=== PATIENT | male | born 2000 | race Caucasian/White ===

== ENCOUNTER 2019-09-05 21:56 | Emergency (ER) | payer SELFPAY ==
[2019-09-05 21:59] VITALS: BP 126/73; PULSE 108; RESP 18; TEMP 36.8; O2SAT 95; BMI 24.5
--- NOTE | 2019-09-05 22:58 | ED_ITS ---
HPI - Eye Problem General: Chief complaint: Eye Problems Stated complaint: possible eye infection Time Seen by Provider: 09/05/19 22:01 History of Present Illness: MD chief complaint: eye pain, eye redness and vision change Onset (ago): day(s) (1) Onset description: sudden Duration: constant Location: right eye Eye Symptoms: burning, redness and blurry vision Place: home Mechanism: direct trauma Severity: moderate If Pain, Quality: burning Associated symptoms: Denies no associated symptoms, fever(s), headache(s), nausea, neck pain, short of breath or vomiting Review of Systems Const: Denies: fever Eyes: Denies: change in vision or blurry vision ENMT: Denies: painful swallowing, swelling of lips/tongue, bleeding gums, Change in hearing, nose bleeds, post nasal drip or facial/sinus pain Card: Denies: chest pain, palpitations, irregular heart rhythm, edema, swelling of feet/ankles, shortness of breath on exertion or shortness of breath when lying down Resp: Denies: shortness of breath, productive cough, non-productive cough or wheezing GI: Denies: nausea or vomiting : Denies: difficulty urinating or blood in urine Musc: Denies: neck pain Skin/Breast: Reports: new lesion (Patient states he has had a right distal arm lesion with pain, swelling, and drainage for the last several days. He notes that a lot of pus has come out of it with pressure.); Denies: itching or redness Neuro: Denies: headache Psych: Denies: anxiety, visual hallucinations or auditory hallucinations PFSH ED PFSH: Social History Smoking and tobacco status: current every day smoker Physical Exam Const: GENERAL APPEARANCE: well developed ORIENTATION/CONSCIOUSNESS: Yes oriented to person, Yes oriented to place and Yes oriented to time HENMT: COMMON NORMALS: normocephalic, external ears normal and external nose normal HEAD & SCALP: normocephalic FACE & SINUS: normal facial exam NOSE: external nose normal and no nasal discharge EXTERNAL EAR: Yes external ears normal MOUTH: tongue normal TEETH & GINGIVA: no abnormal tooth and associated gingiva THROAT: posterior oropharynx normal; no peritonsillar mass Eye: COMMON NORMALS: PERRL VISUAL ACUITY: Yes visual acuity right eye (Decrease) VISUAL JACOBO: No peripheral vision loss EYELID: eyelids normal CONJUNCTIVA: Yes conjunctiva abnormal positive right conjunctival injection PUPIL: Yes PERRL DIRECT OPHTHALMOSCOPY: Yes other (On fluorescein exam, uptake noted at 6:00. Indicative of corneal abrasion) Neck/C-Spine: COMMON NORMALS: full ROM GENERAL: No tracheal deviation CERVICAL SPINE: Yes normal cervical lordosis and No cervical spine tenderness Chest: COMMONS NORMALS: inspection of chest normal CHEST: No tenderness Resp: COMMON NORMALS: clear to auscultation bilaterally EFFORT & INSPECTION: No tachypneic, No respiratory distress, No retractions, No uses accessory muscles and No tracheal deviation AUSCULTATION: clear to auscultation bilaterally, no rhonchi, no wheezes and lung sounds not diminished Cardio: COMMON NORMALS: regular rate and regular rhythm RATE: regular rate RHYTHM: regular rhythm HEART SOUNDS: no murmurs PERIPHERAL PULSES: radial pulses present GI: INSPECTION: No abdominal distension AUSCULTATION: No hyperactive bowel sounds and No hypoactive bowel sounds PALPATION: No guarding and No rigid PERCUSSION: no dullness to percussion and no tympanic to percussion : COMMON NORMALS: Yes no CVA tenderness BLADDER/KIDNEY EXAM: Yes no CVA tenderness Back/Pelvis: COMMON NORMALS: no CVA tenderness Neuro: SENSORIUM/ORIENTATION: Yes oriented to person, Yes oriented to place and Yes oriented to time Psych: COMMON NORMALS: mental status grossly normal Skin: LESIONS: other (Right distal arm, ulceration with drainage. There is swelling surrounding with mild redness. No streaking or lymphadenitis. No extreme pain with wrist extension.) Procedures Abscess I/D Site: upper extremity (Right arm) Side (if applicable): right Local Anesthetic: lidocaine 1% Amount of anesthesia used (mL): 4 Technique: incised with #11 blade Amount of fluid expressed (mL): 10 Irrigation: No Packing used?: plain Complications: other (None) Course Vital Signs: Vital signs: Vital Signs Temperature 98.3 F 09/05/19 21:59 Pulse Rate 102 H 09/05/19 23:12 Respiratory Rate 17 09/05/19 23:12 Blood Pressure 120/65 09/05/19 23:12 Pulse Oximetry 96 09/05/19 23:12 MDM - Eye Problem MDM Narrative: Medical decision making narrative: 2 complaints. The first is that of a corneal abrasion. The second is that the skin abscess to his right distal arm. A small amount of old blood, and some pus extruded on incision and drainage. It was packed with a small amount of packing. It be placed on Bactrim. Polymyxin eyedrops for the eye. Close outpatient follow-up via urgent care, as the patient has no primary care provider Discharge Plan Discharge Patient Disposition: Home, Self-Care Clinical Impression: Corneal abrasion Qualifiers: Encounter type: initial encounter Laterality: right Qualified Code(s): S05.01XA - Injury of conjunctiva and corneal abrasion without foreign body, right eye, initial encounter Abscess of skin Qualifiers: Site of cutaneous abscess: extremity Site of cutaneous abscess of extremity: upper extremity Laterality: right Qualified Code(s): L02.413 - Cutaneous abscess of right upper limb Condition: Stable Prescriptions: New Bactrim DS 800-160 mg tablet 2 tab PO BID 7 Days Qty: 28 RF: 0 [place] 5-325 mg tablet 1 tab PO Q6H PRN (Reason: pain) Qty: 10 RF: 0 Discharge Orders: Discharge Order (Routine); Ordered 09/05/19 Ordered By: Chau Alexander Referrals: [facility]RG[facility], [Staff Physician] - 4-7 days (For wound check) Discharge Diet: Usual diet Discharge Activity: Resume usual activity Patient Instructions: Corneal Abrasion (ED), Abscess (ED) Activity Restrictions/Additional Instructions: Wash area with clean soap and water frequently. Do not soak. Leave packing in until it falls out. When it falls out, just keep it covered. Keep it covered at all times to prevent leakage of drainage. Return for worsening pain, swelling, redness despite at least 2 doses of antibiotics. Return also for wors ening vision, worsening eye pain, drainage from the eye despite treatment. Use the eyedrops you were dispensed every 4 hours while awake for the next 7 days. Do not use contacts. Discharge Date/Time: 09/05/19 23:12 Coding Level of Care Code ED Calculator Operator for Raymond Villagomez
[2019-09-05] MEDS: fluorescein 1 mg Strip EYE-RIGHT (23:01)
[2019-09-05] MEDS: lidocaine 1% INJ 20 mL INJECTION (23:02)
[2019-09-05] MEDS: oxyCODONE-APAP 5-325 mg Tablet 2 TAB PO (23:04)
[2019-09-05] MEDS: sulfamethoxazole-trimeth DS 160-800 mg Tablet 2 TAB PO (23:04)
[2019-09-05 23:12] VITALS: BP 120/65; PULSE 102; RESP 17; O2SAT 96
[2019-09-05] MEDS: tetracaine 0.5% Op Soln 4 mL Btl 1 DROP EYE-RIGHT (23:13)
== END 2019-09-05 23:12 | disposition home or self-care (01) ==
PROVIDERS: Emergency Provider Emergency Medicine
DX: S05.01XA Injury of conjunctiva and corneal abrasion without foreign body, right eye, initial encounter (principal); L02.413 Cutaneous abscess of right upper limb; X58.XXXA Exposure to other specified factors, initial encounter; F17.210 Nicotine dependence, cigarettes, uncomplicated
CPT/HCPCS: 10060; 12345; 99281; 99283; J2001

== ENCOUNTER 2019-09-10 00:06 | Emergency (ER) | payer SELFPAY ==
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
--- NOTE | 2019-09-10 00:42 | PC.NURSE ---
Patient would not allow vitals or any labs to be drawn. Pt very anxious and uncooperative.
== END 2019-09-10 00:55 | disposition left against medical advice (07) ==
PROVIDERS: Emergency Provider Emergency Medicine
DX: R55 Syncope and collapse (principal); Z53.29 Procedure and treatment not carried out because of patient's decision for other reasons
CPT/HCPCS: 12345; 99281

== ENCOUNTER 2020-02-15 03:10 | Inpatient (IN) | payer SELFPAY ==
[2020-02-15] VITALS (76 sets, daily range): BP systolic 86–128; BP diastolic 38–76; PULSE 81–149; RESP 13–48; TEMP 36.5–39.4; O2SAT 63–98; BMI 28.0
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
--- NOTE | 2020-02-15 03:21 | ECG_ITS ---
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 Measurements Intervals [place] Rate: 123 P: 66 [place]: 129 QRS: 57 QRSD: 99 T: 53 QT: 336 QTc: 481 Interpretive Statements SINUS TACHYCARDIA ABNORMAL RHYTHM ECG No previous ECG available for comparison Electronically Signed On 02-15-2020 20:24:43 CDT by Hernandez Whitaker M.D. [id number]
[2020-02-15] MEDS: morphine 4 mg/mL SDV 1 mL IVP (03:26)
[2020-02-15] MEDS: sodium chloride 0.9% 1,000 ML 999 ML IV (03:26)
[2020-02-15] MEDS: ondansetron 2 mg/ML SDV 2 mL 4 MG IVP (03:27)
[2020-02-15 03:37] LABS: Basophils # 0.1 10^3/uL (0.0-0.1); Basophils % 0.4 %; Eosinophils % 0.1 %; Hematocrit 37.2 % (42.0-52.0); Hemoglobin 12.4 g/dL (11.7-16.6); Lymphocytes # 1.2 10^3/uL (0.8-4.8); Lymphocytes % 6.9 %; Mean Corpuscular HGB Conc 33.3 g/dL (30.0-36.0); Mean Corpuscular Hemoglobin 27.6 pg (28.0-34.0); Mean Corpuscular Volume 82.7 fL (80-94); Mean Platelet Volume 12.4 fL (7.4-10.4); Monocytes % 11.4 %; Neutrophils # 14.11 10^3/uL (1.8-7.7); Neutrophils % 79.9 %; Nucleated Red Blood Cells % 0 %; Platelet Count 130 10^3/cmm (130-400); Red Cell Distribution Width 13.2 % (12.1-15.1); White Blood Count 17.7 10^3/uL (4.0-10.0)
[2020-02-15] MEDS: iohexol 300 mg/mL 100 mL Btl IV ×2 (03:40→11:06)
[2020-02-15 03:48] LABS: INR 1.02 (0.8-1.2)
[2020-02-15 03:49] LABS: Partial Thromboplastin Time 30.1 SECONDS (23.9-36.7)
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
[2020-02-15 03:58] LABS: Alanine Aminotransferase 49 U/L (0-41); Albumin Level 2.6 g/dL (3.5-5.2); Alkaline Phosphatase 103 IU/L (40-130); Anion Gap 12.5 (5-19); Aspartate Amino Transferase 103 U/L (0-40); Blood Urea Nitrogen 13 mg/dL (6-20); C Reactive Protein 203.8 mg/L (0.0-4.9); Calcium 7.6 mg/dL (8.5-10.5); Carbon Dioxide 27 mmol/L (22-29); Chloride 92 mmol/L (98-107); Globulin 3.7 g/dL (1.3-4.6); Glomerular Filtration Rate 142.4 mL/min (90-130); Glucose 124 mg/dL (65-115); Lipase 15 U/L (13-60); Osmolality Calculated 268 mOsm/kg (285-295); Potassium 3.5 mmol/L (3.5-5.1); Sodium 128 mmol/L (136-145); Total Bilirubin 0.5 mg/dL (0.15-1.2); Total Protein 6.3 g/dL (6.6-8.7)
[2020-02-15 04:16] LABS: Lactate (Lactic Acid level) 1.1 mmol/L (0.5-2.2)
[2020-02-15 04:27] LABS: Glucose Point of Care 111 mg/dL (70-110)
[2020-02-15] MEDS: pantoprazole 40 mg SDV 80 MG IVP (04:34)
[2020-02-15] MEDS: HYDROmorphone 1 mg/mL INJ 1 mL IVP ×5 (04:35→21:23)
[2020-02-15] MEDS: piperacillin-tazobactam 4.5 GM in sodium chloride 0.9% (plus) 50 ML IV (05:03)
[2020-02-15] MEDS: vancomycin 1,000 MG in sodium chloride 0.9% 250 ML 250 MG IV (05:08)
--- NOTE | 2020-02-15 05:11 | PC.NURSE ---
during pt rounds, pt requesting something to drink . Per Dr Alexander, ok for po water challenge in slow increments
[2020-02-15 05:23] LABS: Add Urine Microscopic? NO
[2020-02-15 05:24] LABS: Bilirubin Urine Neg (Negative); Blood Urine Neg (Negative); Glucose Urine UA Norm (Normal); Ketones Urine Negative (Negative); Leukocyte Esterase Urine Negative (Negative); Nitrate Urine Negative (Negative); Protein Urine Neg (Negative); Specific Gravity, Urine 1.005 (1.005-1.030); Urine Appearance Clear (CLEAR); Urine Color Yellow (Yellow); Urobilinogen Urine 4 mg/dL (Negative); pH Urine 5 (5-7)
[2020-02-15 05:52] LABS: SARS Covid-2 Antigen Negative (Negative)
--- NOTE | 2020-02-15 06:22 | USCV_ITS ---
Adams Rankin Age: 19 Gender: M : 2000 Exam Date: 02/15/2020 15:51 Ordering Phys: Chau Alexander DO Technologist: Aleksandra Martines [place] [facility] [place]ication: Septic emboli, endocarditis ? BP: 103 / 51 HR: 92 Rhythm: Sinus Technical Quality: Good MEASUREMENTS (Male / Female) Normal Values 2D ECHO LV Diastolic Diameter PLAX 5.0 cm 4.2 - 5.9 / 3.9 - 5.3 cm LV Systolic Diameter PLAX 3.7 cm LV Chamber Size 4.9 cm IVS Diastolic Thickness 1.0 cm 0.6 - 1.0 / 0.6 - 0.9 cm IVS Systolic Thickness 1.2 cm LVPW Diastolic Thickness 0.9 cm 0.6 - 1.0 / 0.6 - 0.9 cm LVPW Systolic Thickness 1.6 cm RV Chamber Size 2.7 cm LVOT Diameter 2.2 cm LV Ejection Fraction 2D Teich 51.9 % LV Ejection Fraction MOD 2C 58.6 % LV Ejection Fraction 2C AL 58.9 % LA Diameter 2.9 cm LA Width 2.8 cm LA Height 5.2 cm RA Width 3.0 cm RA Height 4.0 cm Aorta at Sinotubular Diameter 2.3 cm M-MODE LV Diastolic Diameter MM 5.6 cm 4.2 - 5.9 / 3.9 - 5.3 cm LV Systolic Diameter MM 3.9 cm LV Ejection Fraction MM Teich 56.8 % IVS Diastolic Thickness MM 1.3 cm 0.6 - 1.0 / 0.6 - 0.9 cm IVS Systolic Thickness MM 1.3 cm LVPW Diastolic Thickness MM 1.2 cm 0.6 - 1.0 / 0.6 - 0.9 cm LVPW Systolic Thickness MM 1.6 cm RV Diastolic Diameter MM 1.9 cm Aortic Annulus Diameter 2.8 cm LA Ao Ratio MM 1.2 MV E Point Septal Separation 0.9 cm DOPPLER AV Peak Velocity 125.0 cm/s LVOT Peak Velocity 100.0 cm/s AV Area Cont Eq vti 3.2 cm squared AV Area Cont Eq pk 3.1 cm squared MV Area PHT 4.0 cm squared Mitral E to A Ratio 1.1 MV E' Velocity 38.0 cm/s Mitral E to MV E' Ratio 4.0 Mitral E to LV E' Lateral Ratio 3.4 Mitral E to LV E' Septal Ratio 4.8 TR Peak Velocity 215.0 cm/s TR Peak Gradient 18.5 mmHg TV Peak E Velocity 76.0 cm/s Right Atrial Pressure 3.0 mmHg Pulmonary Artery Systolic Pressu 21.5 mmHg PV Peak Velocity 77.0 cm/s RV Acceleration Time 0.1 s RV Ejection Time 0.2 s RV AcT/ET 0.4 FINDINGS Left Ventricle Normal left ventricular size, systolic function and wall thickness, with no regional wall motion abnormalities. LVEF is 50 to 55%. Normal left ventricular wall thickness. Normal diastolic filling pattern. Right Ventricle The right ventricle is normal in size and function. Right Atrium The right atrium is normal in size. Left Atrium The left atrium is normal in size. Mitral Valve Structurally normal mitral valve without significant stenosis or prolapse. There is trace mitral regurgitation. Aortic Valve Structurally normal aortic valve without significant sclerosis or stenosis. There is no aortic regurgitation. Tricuspid Valve There is a large mass attached to anterior leaflet of tricuspid valve measuring 1.9 x 1.6 cm. This likely represents a vegetation. Moderate tricuspid regurgitation is noted. RVSP is 20 to 25 mmHg. Pulmonic Valve Not entirely visualized however no visible vegetation noted. There is mild pulmonic regurgitation. Pericardium Normal pericardium with trace pericardial effusion Aorta Normal ascending aorta dimension. CONCLUSIONS LV systolic function is normal. Diastolic function is normal. There is a large mass attached to the anterior leaflet of tricuspid valve measuring 1.9 x 1.6 cm. This likely represents a vegetation. There is mild to moderate tricuspid regurgitation. Other valvular structures do not demonstrate evidence of vegetation. Hernandez Whitaker MD (Electronically Signed) Final Date: 15 February 2020 19:29 S
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
--- NOTE | 2020-02-15 07:16 | PC.NURSE ---
Shift Events: Patient arrived to unit from ED via stretcher. Complaining of pain 8/10 in the chest and RUQ that radiates. Patient is alert and oriented x 4. Dr. Tyler assessed patient at bedside and explained plan of care to patient. Plans include multiple antibiotic and ECHO. Patient is in agreement with these plans. Patient voided in toilet and stated that he voided blood. Patient is tachy, tachypneic, and hypotensive. Report given to Cristina.
[2020-02-15] MEDS: sodium chloride 0.9% 1,000 ML 120 ML IV ×2 (08:08→20:42)
[2020-02-15] MEDS: famotidine 20 mg/2 mL INJ IVP ×2 (08:11→20:08)
--- NOTE | 2020-02-15 08:43 | PC.NURSE ---
Morning rounds Patient reports pain as an 8/10, and patient respiratory rate is shallow and rapid (30), and oxygen saturation between 87% and 91% Pt reports difficulty breathing fully and sitting up due to stomach and chest pain. Nurse gave PRN dilaudid and reassessed. Patient is now sleeping, respiratory rate has decreased to 24 and breaths are more full. Oxygen saturation remains in the high 80's. Nurse applied 2L O2 NC. Oxygen saturation is now 97%+. Patient reported intermittent nausea. Nurse informed patient about antiemetic medication PRN if needed.
[2020-02-15 09:06] LABS: Hepatitis A Antibody IgM Non-Reactive (Nonreactive); Hepatitis B Core IgM Non-Reactive (Nonreactive); Hepatitis B Surface Antigen Non-Reactive (Nonreactive)
--- NOTE | 2020-02-15 09:08 | PC.NURSE ---
At 0700, patient's tempt was 100 oral. It has increased to 102.9 by 0900. Received order from Dr betts for tylenol. 650mg table, q4, prn.
[2020-02-15] MEDS: acetaminophen 325 mg Tablet 650 MG PO ×3 (09:25→20:08)
[2020-02-15 09:35] LABS: Hepatitis C Virus Antibody Reactive (Nonreactive)
[2020-02-15 10:15] LABS: HIV 1 & 2 Antibody Non-Reactive (Non-Reactiv); HIV 1 & 2 Antigen Non-Reactive (Non-Reactiv)
--- NOTE | 2020-02-15 10:15 | CTR_ITS ---
PROCEDURE INFORMATION: Exam: CT Chest With Contrast Exam date and time: 02/15/2020 10:44 AM Age: 19 years old Clinical indication: Cough and shortness of breath; Cough with hemorrhage; Additional info: Cavitating lesions noted on abdomen CT c/f septic emboli TECHNIQUE: Imaging protocol: Computed tomography of the chest with intravenous contrast. Radiation optimization: All CT scans at this facility use at least one of these dose optimization techniques: automated exposure control; mA and/or kV adjustment per patient size (includes targeted exams where dose is matched to clinical indication); or iterative reconstruction. Contrast material: OMNIPAQUE 300; Contrast volume: 95 ml; Contrast route: INTRAVENOUS (IV); COMPARISON: CR Chest 2 views* [id number] 02/02/2016 2:12 PM RADIATION DOSE METRICS: Total DLP (mGy-cm): 741.34 FINDINGS: Lungs: There are numerous rounded airspace opacities as well as more well-defined nodules throughout bilateral lungs, primarily peripherally located and some with central gas/cavitation, nonspecific but consistent with septic emboli. Non-specific mild diffuse interstitial thickening. Central airways normal caliber and patent. Pleural space: Small right and trace left layering pleural effusions. No pneumothorax. Heart: Unremarkable. No cardiomegaly. Trace pericardial effusion. Aorta: Unremarkable. No aortic aneurysm. Lymph nodes: Mildly enlarged mediastinal and hilar nodes. Bones/joints: No acute or aggressive osseous lesion. Soft tissues: Unremarkable. CT/CT chest w con* [id number] IMPRESSION: 1. Numerous rounded airspace opacities and more defined cavitary nodules throughout the bilateral lungs, nonspecific but consistent with septic emboli. 2. Small right and trace left layering pleural effusions. Radiation Dose CTDIVOL = (mGy): DLP = 741.34 (mGy-cm)
--- NOTE | 2020-02-15 10:41 | PM.PN ---
Subjective Subjective: Interval history: Overnight labs and H&P reviewed. Patient continues to have intermittent hemoptysis with rust colored sputum. No massive hemoptysis. He remains hemodynamically stable except for tachycardia with heart rate of 210. He is incredibly nervous about his diagnosis. CT of the abdomen pelvis showed possible septic emboli at the lower lung bases, dedicated chest imaging has been added today. Medications: Reviewed: Yes Vitals/I&O/Wt Last Vital Signs Temp 98.2 F 02/15/20 10:00 Pulse 111 H 02/15/20 10:00 Resp 31 H 02/15/20 10:00 BP 113/40 02/15/20 10:00 Pulse Ox 93 02/15/20 10:00 Weight last 48 hrs Weight 87.226 kg Weight 104.326 kg Physical Exam Narrative: EXAM NARRATIVE: GEN: Awake, alert and oriented, no acute distress CVS: S1S2 N RS: CTA B/L Abd: Soft, nt/nd , bs+ GRAPHIC MANAGER: no focal neuro deficits Ext : no edema, cyanosis or clubbing Data : 02/15/20 03:30 02/15/20 03:30 Micro: Microbiology 02/15/20 04:45 Blood Culture - Preliminary Blood SPECIMEN COLLECTED 02/15/20 04:45 Blood Culture - Preliminary Blood SPECIMEN COLLECTED A&P Assessment and plan (1) Suspected endocarditis: Status: Acute (2) Hemoptysis: Status: Acute (3) Septic pulmonary embolism: Status: Acute Qualifiers: Acute cor pulmonale presence: without acute cor pulmonale Chronicity: acute Qualified Code(s): I26.90 - Septic pulmonary embolism without acute cor pulmonale (4) Sepsis: Status: Acute Qualifiers: Sepsis acute organ dysfunction status: with acute organ dysfunction Sepsis type: sepsis due to unspecified organism Severe sepsis acute organ dysfunction type: unspecified Severe sepsis shock status: without septic shock Qualified Code(s): A41.9 - Sepsis, unspecified organism; R65.20 - Severe sepsis without septic shock (5) Polysubstance abuse: Status: Acute (6) Hepatitis C: Status: Acute Qualifiers: Viral hepatitis chronicity: unspecified Hepatic coma status: without hepatic coma Qualified Code(s): B19.20 - Unspecified viral hepatitis C without hepatic coma Additional A&P Information # Sepsis, meets criteria with fever tachycardia leukocytosis. #Suspected bacterial endocarditis given ongoing IVDU, septic embolization and splenomegaly. -Blood cultures have been sent and remain pending. Check repeat blood cultures again now with high fevers of 102. -Transthoracic echocardiogram taken today, results remain pending at this time. Additional ZAIRE depending on results of TTE. Noted septic embolization on the CT of the abdomen and pelvis, will go ahead and order dedicated chest imaging especially since patient is also having ongoing hemoptysis. #Hemoptysis, at this point I see rust colored sputum, no luis bleeding Check CT chest to further evaluate septic embolization as noted on abdominal CT. CT will additionally assess for any concerns for tuberculosis. Send AFB smear and MTBC PCR from induced sputum, 3 specimen taken 8 hours apart. Patient states that he was tested by his physician in [place] recently with a PPD which was negtaive, however I have no record of this. Given that patient has ongoing hemoptysis with IV drug use, he needs to be evaluated for MTB. HIV antibody and antigen screen has been sent and remains pending at this time. Patient reports previously testing negative. Check COVID PCR Continue empiric Zosyn and vancomycin for now until blood culture is resulted. Pulmonology consult in case patient develops active hemoptysis in which case he will need urgent bronchoscopic assessment. Check sputum culture and Gram stain #Hepatitis C, patient states this is active. He is supposed to start treatment for hepatitis C in [place], however he needs to be free of any IV drug use for at least a month prior to his physician starting treatment. This is not currently an urgency and will be deferred for after discharge. Check hepatitis C RNA in the interim #Polysubstance abuse, this is still active, last injected drugs 3 weeks ago per his history. Full code DVT prophylaxis Lovenox Attestations Medical Necessity Statement*: Patient needs ongoing admission for hemoptysis, evaluation for bacterial endocarditis Coding Level of Care Code Acute Abrading Machine Tender for g Fwd Diagnoses Suspected endocarditis R09.89 Hemoptysis R04.2 Septic pulmonary embolism I26.90 Acute cor pulmonale presence: without acute cor pulmonale Chronicity: acute Sepsis A41.9; R65.20 Sepsis acute organ dysfunction status: with acute organ dysfunction Sepsis type: sepsis due to unspecified organism Severe sepsis acute organ dysfunction type: unspecified Severe sepsis shock status: without septic shock Polysubstance abuse F19.10 Hepatitis C B19.20 Viral hepatitis chronicity: unspecified Hepatic coma status: without hepatic coma
[2020-02-15] MEDS: pantoprazole 40 mg SDV IVP ×2 (11:23→22:33)
--- NOTE | 2020-02-15 13:21 | PC.NURSE ---
Patient's breathing has slowed to within normal limits (currently 20 RR), and he saturation is 96%+. Nurse discontinued O2 2l NC and saturation remained the same.
[2020-02-15] MEDS: LORazepam 2 mg/mL INJ 1 mL 1 MG IVP ×2 (13:39→20:07)
--- NOTE | 2020-02-15 15:06 | PC.NURSE ---
Offered patient oral care products, deodorant, and a brush. Offered assistance with use. Patient declined assisstance.
--- NOTE | 2020-02-15 15:06 | PC.NURSE ---
Patient told nurse they are wanting a cigarette, Nurse offered a nicotine patch, patient declined.
--- NOTE | 2020-02-15 19:04 | PC.NURSE ---
Patient is reporting pain of a 7/10. THey have received all pain medications available and they are requesting muscle relaxants and fentanyl. Nurse alerted Dr betts. Dr betts stated she will put in an order for a muscle relaxant.
--- NOTE | 2020-02-15 19:52 | P.EN_ITS ---
Event Note Event Note: Called by cardiology, Dr. Whitaker. Echocardiogram shows an approximately 2 cm tricuspid valve vegetation. Given the large size of the vegetation, they recommended cardiothoracic surgery involvement for consideration of surgical intervention. I called Dr. Perez and he is happy to consult. He will see the patient in the morning. We reviewed some basics of results that have come back thus far including blood cultures with gram-positive cocci, hepatitis C positivity, HIV negativity, and some pending work-up as well as currently stable vital signs. Almost immediately as I got off the phone with Dr. Perez, patient's father Willie Rankin called wanting to speak to the doctor. I confirmed that I had permission to talk with Mr. Fairbanks via a nurse asking Adams if it was okay to talk to his father. He did give permission. Let Willie Fairbanks know echocardiogram results showed large tricuspid valve vegetation consistent with endocarditis, which was the presumptive diagnosis when he came in last night. Mr. Fairbanks expressed that he knew what endocarditis was as he has a friend who is in cardiology. He is also fully aware that is related to IV drug use. Further reviewed that I had just gotten off the phone with cardiothoracic surgery here to assist with evaluating if antibiotic management versus surgical intervention would be required, given the large size of the vegetation and degree of septic emboli in the lungs. Willie Fairbanks expressed that should surgery be required he would want his son transferred to [place]. I reviewed the availability of medical providers here including cardiology, cardiothoracic surgery, pulmonology as well as infectious disease, who happened to see him as a hospitalist today. Explained that definitive management plan had not yet been determined and the consultations were to ensure that all appropriate treatment options were explored and his son situation. Willie Fairbanks is okay with us proceeding with evaluation of best options for his son here currently. He understands that sometimes this can be treated with IV antibiotics alone yet sometimes require surgical intervention in the form of a valve replacement. Informed him that management recommendations would be forthcoming in the next day or 2 and that physicians on at such time would review these with him and his son so that appropriate plans of care can be facilitated. Reviewed current stable vital signs and positive blood cultures with met Fairbanks also. Mr. Fairbanks was given an opportunity to ask further questions and subsequently transferred so he could speak to his son on the phone. Dr. Whitaker from cardiology will also see Mr. Fairbanks consultation. Of note, repeat CBC ordered for this afternoon has not been collected and Kash currently refusing further blood draws today. Event Notes Attestations Time Spent in Patient Care: 16 - 35 minutes (>than 50% of time spent in counselling and/or direct pt care on unit) . [address] Whitaker, Dr. Perez and patient son
[2020-02-15] MEDS: cyclobenzaprine 10 mg Tablet PO (20:09)
[2020-02-15] MEDS: oxyCODONE 5 mg IR Tab/Cap PO (21:45)
[2020-02-15] MEDS: nicotine 14 mg Patch 1 PATCH TRANSDERMA (22:35)
[2020-02-15] MEDS: sodium chloride 0.9% 250 ML IV (23:13)
--- NOTE | 2020-02-15 23:45 | PC.RESP ---
pt refusing ABG doctor was contacted on refusal
[2020-02-16] VITALS (37 sets, daily range): BP systolic 82–107; BP diastolic 37–67; PULSE 98–130; RESP 16–48; TEMP 36.8–38.9; O2SAT 86–97
[2020-02-16] MEDS: HYDROmorphone 1 mg/mL INJ 1 mL IVP ×6 (02:14→22:48)
[2020-02-16] MEDS: sodium chloride 0.9% 250 ML IV (02:35)
--- NOTE | 2020-02-16 03:37 | PC.NURSE ---
Addendum entered by Ange Mason RN 02/16/20 07:25: Pt alert and oriented x4 at 0530. C/o'd mid chest pain at 8 and was told that RN would be back in around 0600 to give more pain med and he stated that that was ok. Before going back into pt , Ana Oconnor arrived to floor to see pt. RN accompanied MD into rm. Although pt was A&O x4, he seemed more interested in the OJ that was brought in to him than what the doctor had to say. When MD updated him and stated that he would prob need heart sx and talked to him about his father wanting him sent to [facility], pt stated I am 19 so please talk to me. Doctor stated that We will only talk wo who you want us to talk to and we won't talk to who you don't want us to talk to. Original Note: Pt alert with confusion to where he was at start of shift. Yuan weakly and c/o mid-chest pain at 12/21. Informed him it was too early to give pain med but gave pt PRN Tylenol and PRN ativan with no relief. Temp was 97.9 orally; 98.2 ax at start of shift. Pt became tachy around 2030 c/o being cold but no temp until around 2300. Pt was shivering; extra blanket removed and rm temp turned down. Dr. Tyler had been on floor and updated on pt discomfort. Pt's father had called for update and spoke with Dr Tyler and apparently he told her that he wanted his son shipped to [place] if he needed heart surgery. Mom called shortly after and was updated as well and told about her ex-'s desire to transfer pt to [facility]. She felt that that was unnecessary as [facility] does a fantastic job and you have everything there to take care of him. Interval for dilaudid changed and pt given 1 mg IVP and pt eventually began to rest. O2 sats down to 88, 89% and BPs soft after that. O2 applied 2L via NC. 250 mL bolus given with no substantial improvement seen. PLR NICOM done and showed SVI 38, CI 3.8 and 6.2% responsiveness. MD in unit and aware of results. She stated that pt BP usually runs a bit low . MD then ordered a bolus challenge with results of SVI 41, CI 4.1 and 18.5% responsiveness. Results sent via Voalte to MD and no orders received by the writing of this note. Vanc currently infusing and pt resting quietly in bed. Cont to monitor.
--- NOTE | 2020-02-16 04:41 | PC.NURSE ---
Addendum entered by Ange Mason RN 02/16/20 05:17: Skein Inspector her to do AM labs. Allowed her to try 1x but unable to get blood. Pt refused further attempts. Original Note: Lab called to report that blood cxs 3 and 4 anerobic are both positive for gram+ cocci in chains and clusters. Voalte message sent to Dr. Tyler. It was acknowledged and no new orders at this time. Cont to monitor.
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
--- NOTE | 2020-02-16 07:42 | PC.NURSE ---
Dr. Ortiz notified that the pt HR is maintaining in 120's. No new orders at this time.
[2020-02-16] MEDS: sodium chloride 0.9% 1,000 ML 120 ML IV ×2 (08:05→21:00)
[2020-02-16] MEDS: famotidine 20 mg/2 mL INJ IVP ×2 (08:26→21:00)
[2020-02-16] MEDS: LORazepam 2 mg/mL INJ 1 mL 1 MG IVP (08:26)
[2020-02-16] MEDS: acetaminophen 325 mg Tablet 650 MG PO ×2 (08:57→16:18)
--- NOTE | 2020-02-16 09:07 | PC.NURSE ---
Morning rounds. Exceptions to normal: Patient is lethargic, has a fever of 102.1, tachycardic in the 120's, coarse breath sounds, o2 saturation of 88-89% and is reporting pain of 7/10 at his chest, stomach, and non specific generalized pain. PRN ativan given for axiety, tylenol for pain until dilaudid is due and for fever. Overall, pt presentation is similar to yesterday morning, which improved with pain, anxiety, and anytipyretic medication.
--- NOTE | 2020-02-16 09:58 | PC.NURSE ---
Patient's dad called requesting an update. Nurse verified with Patient that we have permission to speak with dad. Nurse advised dad that condition is largely unchanged from the last time we spoke, we are continuing to treat endocarditis with IV antibiotics and that surgery may be necessary. Physicians are collaborating for best option and we are aware of the patients wish to go to [facility] if surgery is needed.
[2020-02-16] MEDS: pantoprazole 40 mg SDV IVP ×2 (10:17→22:48)
--- NOTE | 2020-02-16 11:31 | PM.TDS ---
Transfer Summary Providers Date of Admission: 02/15/20 05:35 Date of Discharge: 02/16/20 Attending Provider at Admission: Nadia Tyler MD Attending Provider at Transfer: Darrell Ortiz MD Anticipated Date of Transfer: Anticipated date of transfer: 02/16/20 Receiving Facility & Provider: Receiving Provider: [] Receiving facility: [] Diagnoses at Discharge Discharge Diagnosis (1) Endocarditis of tricuspid valve: Status: Acute (2) Septic pulmonary embolism: Status: Acute Qualifiers: Acute cor pulmonale presence: without acute cor pulmonale Chronicity: acute Qualified Code(s): I26.90 - Septic pulmonary embolism without acute cor pulmonale (3) Sepsis: Status: Acute Qualifiers: Sepsis acute organ dysfunction status: with acute organ dysfunction Sepsis type: sepsis due to unspecified organism Severe sepsis acute organ dysfunction type: unspecified Severe sepsis shock status: without septic shock Qualified Code(s): A41.9 - Sepsis, unspecified organism; R65.20 - Severe sepsis without septic shock (4) Hepatitis C: Status: Acute Qualifiers: Hepatic coma status: without hepatic coma Viral hepatitis chronicity: unspecified Qualified Code(s): B19.20 - Unspecified viral hepatitis C without hepatic coma (5) Hemoptysis: Status: Acute Reason for Visit Reason for Visit: POSS GI BLEED Hospital Course Hospital Course: 19 year old male with PMH of ploysubstance abuse who presented to the emergency room with not feeling well for about a week .He has been having fever, malaise, progressively worsening right-sided chest pain and right upper abdominal pain. He has had decreased appetite. He began having either hemoptysis the day prior to presentation. He was admitted and worked up for sepsis likely 2/2 to Infective endocarditis rule out other causes. He was started on broad-spectrum namely vancomycin and Zosyn, blood cultures have grown staph .aureus and currently he is on vancomycin , zosyn has been discontinued. Imaging studies done so far includes 2D echo, CT chest abdomen and pelvis without contrast. 2D echo: Has shown: Mild LV function with EF of 50-55%. Tricuspid vegetation of 1.9 * 1.6 cm .mild to moderate tricuspid regurgitation.Other valvular structures do not demonstrate evidence of vegetation. CT chest without contrast: Numerous bilateral cavitary lesion most likely consistent with septic emboli.Small right and trace left layering pleural effusions. CT abdomen and pelvis without CT : No acute intra-abdominal injury. Splenomegaly. Since admission patient has been spiking temperature, and has been tachycardic, but has maintained his blood pressure and has not required any pressors support.He is also having scant hemoptysis but his H&H has remained stable. The current plan is to go ahead and transfer the patient to [facility] in [place]. This is in accordance with family wishes as well as patient's wish. Physical Exam Narrative: EXAM NARRATIVE: EXAM NARRATIVE: GEN: Awake, alert and oriented, no acute distress CVS: S1S2 N RS: CTA B/L Abd: Soft, nt/nd , bs+ NEEDLE CONTROL CHENILLER: no focal neuro deficits Ext : no edema, cyanosis or clubbing TS Data Data Completed and Pending: Completed Studies During Hospitalization Category Date Time Status CT abdomen pelvis w con* [id number] Urge nt Cat Scan 02/15/20 03:[address] chest w con* [id number] Routine Cat Scan 02/15/20 10:15 Completed CV echo complete* [id number] Routine Ultrasound 02/15/20 06:22 Completed Pending at discharge Category Date Time Status Antibody Identifi cation Routine Lab 02/15/20 03:40 Results Blood Culture Sta t Lab 02/15/20 04:45 Results Blood Culture Sta t Lab 02/15/20 10:12 Ordered COVID [Coronaviru s Lab Test PTC] Ro utine Lab 02/15/20 12:20 Received Complete Blood Co unt w/Auto AM LABS Lab 02/16/20 04:00 Ordered Complete Blood Co unt w/Auto Timed Lab 02/15/20 15:00 Ordered Comprehensive Met abolic Panel AM LA BS Lab 02/16/20 04:00 Ordered Hepatitis C RNA V iral Load Qnt Rout ine Lab 02/15/20 10:06 Ordered Leukocyte Reduced RBC Routine Lab 02/15/20 03:40 Results Miscellaneous Trish t Q8H Lab 02/15/20 10:12 Ordered Miscellaneous Trish t Q8H Lab 02/15/20 18:12 Ordered Miscellaneous Trish t Q8H Lab 02/16/20 05:25 Received Mycobacteria, Cul ture w/Fluor Lab 02/15/20 15:45 Received Mycobacteria, Cul ture w/Fluor Lab 02/15/20 18:06 Uncollected Mycobacteria, Cul ture w/Fluor Lab 02/16/20 05:25 Received [id number] ld Plus Routine Lab 02/15/20 10:06 Ordered Rapid Plasma Reag in Syphilis Routin e Lab 02/15/20 10:38 Ordered Sputum Culture an d Gram Stain Routi ne Lab 02/15/20 15:45 Results Type and Screen R outine Lab 02/15/20 03:40 Results Vancomycin Trough Timed Lab 02/16/20 18:00 Ordered Labs from last 24 hours 02/16/20 02/15/20 05:25 12:20 Nasal/Oral COVID-1 9 PCR Pending Misc Test Referenc e Pending Vitals: Last Vital Signs Temp 101.5 F H 02/16/20 10:00 Pulse 112 H 02/16/20 10:00 Resp 30 H 02/16/20 10:56 BP 98/47 02/16/20 10:00 Pulse Ox 94 02/16/20 10:00 TS Medications Medications Home Medications buprenorphine-naloxone 1 tab SUBLINGUAL BID 02/15/20 [History Confirmed 02/15/20] Active Medications Acetaminophen (Tylenol) 650 mg PO Q4H PRN PRN Reason: MILD PAIN OR INCREASE TEMP Last Admin: 02/16/20 08:57 Dose: 650 mg Documented by: Albuterol Sulfate (Albuterol) 2.5 mg INHALATION Q6H.RESPIRATORY PRN PRN Reason: SHORTNESS OF BREATH Cyclobenzaprine HCl (Flexeril) 10 mg PO TID PRN PRN Reason: MUSCLE SPASMS Last Admin: 02/15/20 20:09 Dose: 10 mg Documented by: Docusate Sodium (Colace) 100 mg PO BID [facility] Last Admin: 02/16/20 09:04 Dose: Not Given Documented by: Famotidine (Pepcid Inj) 20 mg IVP Q12H [facility] Last Admin: 02/16/20 08:26 Dose: 20 mg Documented by: Hydromorphone HCl (Dilaudid Inj) 1 mg IVP Q4H PRN PRN Reason: pain Last Admin: 02/16/20 10:56 Dose: 1 mg Documented by: Sodium Chloride (Sodium Chloride 0.9%) 1,000 mls @ 120 mls/hr IV .Q8H20M [facility] Last Admin: 02/16/20 08:05 Dose: 120 mls/hr Documented by: Vancomycin HCl 1,500 mg/ (Sodium Chloride) 250 mls @ 166.667 mls/hr IV Q8H GOKUL; Protocol Last Admin: 02/16/20 11:07 Dose: 166 mls/hr Documented by: Lorazepam (Ativan) 1 mg IVP Q6H PRN PRN Reason: ANXIETY Last Admin: 02/16/20 08:26 Dose: 1 mg Documented by: Nicotine (Nicoderm 14 Mg Patch) 1 patch TRANSDERMA DAILY [facility] Last Admin: 02/15/20 22:35 Dose: 1 patch Documented by: Ondansetron HCl (Zofran) 4 mg IVP Q6H PRN PRN Reason: NAUSEA AND VOMITING Oxycodone HCl (Oxycodone Ir) 5 mg PO Q4H PRN PRN Reason: MODERATE PAIN Last Admin: 02/15/20 21:45 Dose: 5 mg Documented by: Pantoprazole Sodium (Protonix) 40 mg IVP Q12H [facility] Last Admin: 02/16/20 10:17 Dose: 40 mg Documented by: Senna (Senna Lax) 17.2 mg PO BEDTIME [facility] Last Admin: 02/15/20 20:09 Dose: Not Given Documented by: Discharge Plan Discharge Patient Disposition: Home Condition: Stable Prescriptions: No Action buprenorphine-naloxone 8-2 mg tablet, sublingual 1 tab SUBLINGUAL BID RF: 0 Discharge Orders: Discharge Order (Routine); Ordered 02/16/20 Ordered By: Darrell Ortiz Discharge Diet: Usual diet Discharge Activity: Increase activity as tolerated Transfer Attestations Time Spent in Transfer Care*: greater than 30 min Specific Discharge Activities: Specific discharge activities: educating patient, educating and/or supporting family/caregiver, discussing with pcp/other providers, discussing with housing case manager/social workers/dc planners, documenting/other paperwork and evaluating patient/reviewing data Status at Transfer: Cognitive status at transfer: cognitively intact, Behavioral status at transfer: cooperative, Functional status at transfer: independent ambulation Overall status at transfer: patient is back to baseline Quality Metrics Clinical Quality Measures: During this hospital stay, did patient experience: None Coding Level of Care Code Acute Neurodiagnostic Tech for [facility] Fwd Diagnoses Endocarditis of tricuspid valve I07.9 Septic pulmonary embolism I26.90 Acute cor pulmonale presence: without acute cor pulmonale Chronicity: acute Sepsis A41.9; R65.20 Sepsis acute organ dysfunction status: with acute organ dysfunction Sepsis type: sepsis due to unspecified organism Severe sepsis acute organ dysfunction type: unspecified Severe sepsis shock status: without septic shock Hepatitis C B19.20 Hepatic coma status: without hepatic coma Viral hepatitis chronicity: unspecified Hemoptysis R04.2
--- NOTE | 2020-02-16 12:28 | PC.NURSE ---
Nurse offered to change linens and to provide a new gown to the patient. Patient declined. Stated he is very tired and still has generalized pain and doesn't want to get up/be rolled at this time. Nurse provided food tray and offered assistance with eating if necessary, patient declined assistance. Nurse reminded patient that he has oral hygiene products and the nurse can assist with that after meal.
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
[2020-02-16] MEDS: cyclobenzaprine 10 mg Tablet PO (13:39)
[2020-02-16] MEDS: oxyCODONE 5 mg IR Tab/Cap PO (13:40)
[2020-02-16] MEDS: methadone 10 mg Tablet 20 MG PO (14:03)
--- NOTE | 2020-02-16 14:09 | PC.NURSE ---
Patient has developed Severe shaking, and feels very cold despite having a normal temperature. Patient states that he thinks he is going through withdrawal. Nurse questioned patient what he thinks he is withdrawing from because he previously told staff that he last used any substances was 2-3 weeks ago. Patient now tells nurse that he used morphine as recently as the day he was admitted, 02/14/2020. Received an order from DR clancy for 20 mg methadone, po, now.
--- NOTE | 2020-02-16 15:17 | PC.NURSE ---
Reassessed patient after methadone administration. Shaking has decreased significantly, but patient remains confused. Patient will occasionally trail off while speaking and say nonsensical sentences. Dr Ortiz notified.
--- NOTE | 2020-02-16 16:28 | PC.NURSE ---
Patient has developed a fever of 102 axillary. Nurse administered 650mg Acetaminophen PO prn for fever.
--- NOTE | 2020-02-16 16:30 | PC.NURSE ---
Late Note: at 1330 Nurse changed linens while patient was up to the bathroom and dressed patient in new gown. Nurse offered Bed bath/assistance with self care. PT declined assistance. Nurse provided bed bath supplies.
--- NOTE | 2020-02-16 17:45 | PC.NURSE ---
Shift Summary: Throughout shift the patients vitals have been out of normal limits, but stable. Tachycardia around 120 bpm, RR 24-32, Spo2 89-95%, BP in the mid to high 90s systolic. Temperature variable with occasional spike up to 102 degrees, controlled with acetaminophen. 450 mL dark urine. Poor tolerance of diet. Mental status has been variable from alert and oriented to confusion over situation. Lung sounds variable from clear and diminished to coarse. Patient started experiencing withdrawal like symptoms today, chills, tremors, nausea, generalized pain. Patient informed nurse he believes that he is withdrawing from morphine, which he took as recently as the day of admission (02/14/2020). He previously informed us that he last used 2-3 weeks ago. 20 mg methadone ordered for patient, which treated acute symptoms.
--- NOTE | 2020-02-16 18:09 | PC.NURSE ---
Dr Ortiz in room drawing blood from pt. Staff and lab were unable to do so. Blood Cx cancelled.
[2020-02-16 18:19] LABS: Basophils # 0.1 10^3/uL (0.0-0.1); Basophils % 0.5 %; Eosinophils # 0.2 10^3/uL (0.0-0.8); Eosinophils % 1.4 %; Hemoglobin 10.7 g/dL (11.7-16.6); Lymphocytes # 1.3 10^3/uL (0.8-4.8); Lymphocytes % 8.7 %; Mean Corpuscular HGB Conc 32.4 g/dL (30.0-36.0); Mean Corpuscular Hemoglobin 27.4 pg (28.0-34.0); Mean Corpuscular Volume 84.4 fL (80-94); Mean Platelet Volume 12.8 fL (7.4-10.4); Monocytes # 1.6 10^3/uL (0.2-0.9); Monocytes % 10.3 %; Neutrophils # 11.96 10^3/uL (1.8-7.7); Neutrophils % 77.9 %; Nucleated Red Blood Cells % 0 %; Platelet Count 123 10^3/cmm (130-400); Red Blood Count 3.91 10^6/uL (4.1-5.3); Red Cell Distribution Width 13.9 % (12.1-15.1); White Blood Count 15.4 10^3/uL (4.0-10.0)
[2020-02-16 19:14] LABS: Alanine Aminotransferase 52 U/L (0-41); Albumin Level 2.1 g/dL (3.5-5.2); Alkaline Phosphatase 130 IU/L (40-130); Anion Gap 13.7 (5-19); Aspartate Amino Transferase 78 U/L (0-40); Blood Urea Nitrogen 9 mg/dL (6-20); Carbon Dioxide 25 mmol/L (22-29); Chloride 102 mmol/L (98-107); Globulin 3.3 g/dL (1.3-4.6); Glucose 136 mg/dL (65-115); Osmolality Calculated 285 mOsm/kg (285-295); Potassium 3.7 mmol/L (3.5-5.1); Sodium 137 mmol/L (136-145); Total Bilirubin 0.4 mg/dL (0.15-1.2); Total Protein 5.4 g/dL (6.6-8.7)
[2020-02-16 19:41] LABS: Vancomycin Trough 10.7 ug/mL (10-15)
[2020-02-16] MEDS: sennosides 8.6 mg Tablet 17.2 MG PO (21:00)
[2020-02-16 21:54] LABS: Coronavirus Lab Test PTC Negative
--- NOTE | 2020-02-16 23:12 | PC.NURSE ---
Received shift report from Sebastián PAEZ. Assessed pt and noted shallow respirations although SATs were in mid 90s. Pt had no c/o pain at this time. He was a bit resistant to the assessment, did not want to answer questions although after telling him that I needed to assess his mental status he complied and was pleasant. Pt temp 98.3 oral, VS stable. Pt was back to sleep before I left the antiroom. Will continue to monitor.
[2020-02-17] VITALS: BP 110/75; PULSE 110; RESP 38; TEMP 37.3; O2SAT 93
--- NOTE | 2020-02-17 00:20 | PC.NURSE ---
Notified of bed number for [facility]. Report called to JEANNINE Diaz at [phone]. [facility]. Will call [facility] when [facility] and leaves. Will continue to monitor pt in mean time.
--- NOTE | 2020-02-17 00:52 | PC.NURSE ---
Pt transferred to [facility] Pt VSS, temp 99.6. Pt belongs sent with pt. Pt mother called to inform of transfer. Will call [facility] to notify of transport.
[2020-02-17 00:56] VITALS: BP 108/72; PULSE 112; RESP 37; TEMP 37.6; O2SAT 92
== END 2020-02-17 01:00 | disposition short-term general hospital (02) | DRG 871 ==
LOC: ER 05:13 → ICU 05:41
PROVIDERS: Student in an Organized Health Care Education/Training Program; Admitting Provider Hospitalist; Emergency Provider Emergency Medicine; Visit Provider Internal Medicine
DX: A41.9 Sepsis, unspecified organism (principal); I26.90 Septic pulmonary embolism without acute cor pulmonale; I33.0 Acute and subacute infective endocarditis; B17.10 Acute hepatitis C without hepatic coma; R65.20 Severe sepsis without septic shock; F10.20 Alcohol dependence, uncomplicated; F19.10 Other psychoactive substance abuse, uncomplicated
CPT/HCPCS: 12345; 36416; 36592; 71260; 74177; 80053; 80074; 80202; 80500; 81003; 82962; 83605; 83690; 85025; 85610; 85730; 86140; 86850; 86870; 86900; 86920; 87015; 87040; 87070; 87077; 87116; 87186; 87205; 87206; 87426; 87635; 87801; 87806; 93005; 93306; 96375; 99283; C9113; J1170; J2060; J2270; J2405; J2543; J3370; J3490; J7030; J7050; Q9967

== ENCOUNTER 2020-06-14 11:27 | Emergency (ER) | payer SELFPAY ==
[2020-06-14 11:35] VITALS: BP 127/70; PULSE 107; RESP 26; TEMP 37; O2SAT 100; BMI 24.3
[2020-06-14 11:38] VITALS: O2SAT 96
--- NOTE | 2020-06-14 11:38 | XRR_ITS ---
PROCEDURE INFORMATION: Exam: XR Chest, 1 View Exam date and time: 06/14/2020 12:30 PM Age: 19 years old Clinical indication: Cough and dyspnea and shortness of breath; Prior surgery; Surgery type: Valve; Additional info: Dyspnea/cough TECHNIQUE: Imaging protocol: XR of the chest Views: 1 view. COMPARISON: CT angio chest PE protcl [id number] 06/14/2020 12:10 PM FINDINGS: Lungs: Right perihilar parenchymal lung density is seen showing decreased conspicuity since prior examination. Pleural spaces: Unremarkable. No pleural effusion. No pneumothorax. Heart/Mediastinum: Unremarkable. No cardiomegaly. Bones/joints: Metallic sternotomy wires are in place. XR/XR chest 1V portable [id number] IMPRESSION: 1. Right perihilar parenchymal lung density showing decreased density since prior 2. Metallic sternotomy wires are in place.
--- NOTE | 2020-06-14 11:39 | ECG_ITS ---
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 Measurements Intervals [place] Rate: 106 P: 70 [place]: 100 QRS: 69 QRSD: 95 T: 34 QT: 325 QTc: 432 Interpretive Statements SINUS TACHYCARDIA WITH SHORT WY INTERVAL POSSIBLE LEFT ATRIAL ENLARGEMENT [-0.1mV P WAVE IN V1/V2] Compared to ECG 02/15/2020 03:27:24 Short [place] interval now present Electronically Signed On 06-14-2020 17:07:44 GAS SYSTEMS WORKER by Hernandez Whitaker M.D. [id number]
--- NOTE | 2020-06-14 11:48 | ED_ITS ---
HPI - Chest Pain General: Chief Complaint: Chest Pain Stated Complaint: CHEST PAIN, POS VALVE REPLACEMENT Time Seen by Provider: 06/14/20 11:28 History of Present Illness: HPI narrative: 19-year-old male comes in complaining of chest pain or she takes a deep breath worse with palpation. It started a couple days ago and progressively worse. He is about 3 to 4 months post open valve replacement. He had a porcine valve tricuspid replacement. Reviewing the date of Admission: Patient had septic pulmonary embolism with endocarditis of the tricuspid valve. Was thought to be due to IV drug use. He has not had any fever or shortness of breath he has had some hemoptysis. He is not currently on any anticoagulation. MD complaint: chest pain Onset (ago): hour(s) Timing of current episode: episodic Onset: during rest Pain location: left chest Pain radiation: none Severity: moderate Quality: sharp Relieving factors: rest Exacerbating factors: inspiration and palpation Associated symptoms: Reports dyspnea; Deny abdominal pain, diaphoresis, fever(s), leg edema, nausea, palpitations, sense of impending doom, syncope or vomiting Treatment prior to arrival: none Review of Systems Const: Denies: fever(s) or diaphoresis ENMT: Denies: throat pain, ear or mastoid pain, nasal discharge or nasal congestion Card: Denies: palpitations or syncope Resp: Reports: dyspnea GI: Denies: abdominal pain, nausea or vomiting : Denies: flank pain, dysuria, urinary frequency or urinary urgency Skin/Breast: Denies: rash or pruritus PFSH ED PFSH: Medical History Polysubstance abuse Surgical History History of right knee surgery Family History Mother Substance abuse Social History Smoking and tobacco status: never smoked Second hand smoke exposure: Yes Alcohol intake: current Alcohol intake frequency: few times a week Alcohol type: beer Physical Exam Const: COMMON NORMALS: no acute distress GENERAL APPEARANCE: cooperative and comfortable ORIENTATION/CONSCIOUSNESS: Yes awake, Yes oriented to person, Yes oriented to place and Yes oriented to time HENMT: COMMON NORMALS: normocephalic, atraumatic and hearing grossly normal bilaterally HEAD & SCALP: normocephalic and atraumatic Neck/C-Spine: COMMON NORMALS: no JVD Resp: COMMON NORMALS: normal respiratory effort, No retractions, No use of accessory muscles and clear to auscultation bilaterally AUSCULTATION: clear to auscultation bilaterally Cardio: COMMON NORMALS: no JVD, regular rate, regular rhythm and No murmurs present (Cardio) RATE: regular rate RHYTHM: regular rhythm GI: COMMON NORMALS: Soft to palpation and No hepatosplenomegaly present AUSCULTATION: Yes normoactive bowel sounds PALPATION: Yes Soft to palpation, No Tenderness to palpation present (GI), No Guarding due to palpation present (GI) and Yes No hepatosplenomegaly present Extremity: COMMON NORMALS: normal to inspection, capillary refill normal, no clubbing, cyanosis or edema, no calf tenderness and no pedal edema Neuro: SENSORIUM/ORIENTATION: Yes oriented to person, Yes oriented to place and Yes oriented to time Skin: COMMON NORMALS: no rashes or lesions noted GENERAL SKIN EXAM: no rashes or lesions noted Course Vital Signs: Vital signs: Vital Signs Temperature 98.6 F 06/14/20 11:35 Pulse Rate 107 H 06/14/20 11:35 Respiratory Rate 26 H 06/14/20 11:35 Blood Pressure 127/70 06/14/20 11:35 Pulse Oximetry 96 06/14/20 11:38 MDM - Chest Pain MDM Narrative: Medical decision making narrative: T shows a question of a new pulmonary emboli as well as some cavitated areas white count is elevated concerned he may have another infection would like to transfer via ambulance patient refused signs out AMA and says he will go to [facility] on his own. I had talked to the surgeon who had previously seen him there and we had made arrangements for transfer. Lab Data: Labs: Lab Results 06/14/20 06/14/20 06/14/20 Range/Units 11:42 11:42 11:42 WBC 16.4 H (4.0-10.0) 10^3/ uL RBC 4.43 (4.1-5.3) 10^6/u L Hgb 10.6 L (11.7-16.6) g/dL Hct 34.2 L (42.0-52.0) % MCV 77.2 L (80-94) fL MCH 23.9 L (28.0-34.0) pg MCHC 31.0 (30.0-36.0) g/dL RDW 15.9 H (12.1-15.1) % Plt Count 182 (130-400) 10^3/c mm MPV 10.7 H (7.4-10.4) fL Neut % (Auto) 77.8 % Lymph % (Auto) 10.3 % Rich % (Auto) 11.1 % Eos % (Auto) 0.1 % Baso % (Auto) 0.2 % Neut # (Auto) 12.78 H (1.8-7.7) 10^3/u L Lymph # (Auto) 1.7 (0.8-4.8) 10^3/u L Rich # (Auto) 1.8 H (0.2-0.9) 10^3/u L Eos # (Auto) 0.0 (0.0-0.8) 10^3/u L Baso # (Auto) 0.0 (0.0-0.1) 10^3/u L Nucleated RBC % (a uto) 0 % Nucleated RBCs # 0.0 /100WBC Sodium 130 L (136-145) mmol/L Potassium 4.1 (3.5-5.1) mmol/L Chloride 98 (98-107) mmol/L Carbon Dioxide 23 (22-29) mmol/L Anion Gap 13.1 (5-19) BUN 12 (6-20) mg/dL Creatinine 0.8 (0.7-1.2) mg/dL GFR Calculation 122.0 (90-130) mL/min Glucose 120 H (65-115) mg/dL Calculated Osmolal ity 271 L (285-295) mOsm/k g Calcium 8.8 (8.5-10.5) mg/dL Total Bilirubin 0.6 (0.15-1.2) mg/dL AST 78 H (0-40) U/L ALT 124 H (0-41) U/L Alkaline Phosphata se 97 (40-130) IU/L Troponin T Baselin e 6 (0-15) ng/L Total Protein 7.4 (6.6-8.7) g/dL Albumin 3.6 (3.5-5.2) g/dL Globulin 3.8 (1.3-4.6) g/dL Discharge Plan Discharge Patient Disposition: Left Against Medical Advice Clinical Impression: Septic pulmonary embolism, Polysubstance abuse, Hepatitis C, Endocarditis of tricuspid valve, Atypical chest pain Condition: Stable Prescriptions: No Action furosemide 20 mg tablet See Rx Instructions .ROUTE .COMPLEX RF: 0 metoprolol tartrate 25 mg tablet See Rx Instructions .ROUTE .COMPLEX RF: 0 buprenorphine-naloxone 8-2 mg film 1 film buccal TID RF: 0 Narcan 4 mg/actuation spray,non-aerosol See Rx Instructions .ROUTE .COMPLEX RF: 0 Coding Level of Care Code ED Technical Architect for Raymond Villagomez
--- NOTE | 2020-06-14 11:48 | CT_ITS ---
WS: [id number] CT CHEST ANGIOGRAPHY WITH REFORMATS HISTORY: chest pain dyspnea TECHNIQUE: Contiguous axial images are obtained through the chest during arterial injection of intrav enous contrast. Images are reconstructed to evaluate the pulmonary arteries. MIP imaging also reviewe d. All CT scans at [facility] use at least one of these dose optimization techniques: aut omated exposure control; mA and/or kV adjustment per patient size (includes targeted exams where dose is matched to clinical indication); or iterative reconstruction. CONTRAST: Omnipaque 350; 95 mL IV. DLP: 539.37 mGy.cm COMPARISON: 02/15/2020 Good opacification of the central and segmental pulmonary arteries. Linear pulmonary embolism RIGHT l ower lobe segmental branch. Marked enlargement of the main pulmonary artery measuring up to 3.5 cm. N ormal size aorta. Patient has undergone a recent median sternotomy. Recent tricuspid valve replacemen t. There is significant artifact through the anterior mediastinum from the sternotomy clips. Bilateral, multilobar pulmonary opacifications, groundglass and solid consolidations. Cavitation in s ome of the airspace disease in the RIGHT upper and lower lobes. Overall there has been improvement in the aeration with less opacification. There is significant mediastinal and hilar lymphadenopathy. RIGHT hilar lymph nodes measure up to 2.1 cm. Poorly defined anterior mediastinal adenopathy. There is subcarinal and bilateral hilar adenopat hy. Lymph nodes extend along the RIGHT pulmonary vein. No pericardial or pleural effusions. Marked enlargement of the liver and spleen. Low-attenuation suggesting hepatic congestion. Spleen ext ends over length of at least 18 cm. No osteoblastic or osteolytic disease in the bones of identified. CT/CT angio chest PE protcl [id number] IMPRESSION: 1. Linear, nonocclusive RIGHT lower lobe pulmonary emboli. Age indeterminate. 2. Status post median sternotomy with tricuspid valve replacement since 020. 3. Marked pulmonary artery enlargement. 4. Interval development of mediastinal and hilar lymphadenopathy. This may be neoplastic or infectious. 5. Continued bilateral multi lobar pulmonary opacifications. Some of these opa cifications contain cavitation which can be seen with infection, septic emboli or neoplasm. 6. Severe hepatomegaly and splenomegaly.
[2020-06-14 11:55] LABS: Basophils % 0.2 %; Eosinophils % 0.1 %; Hematocrit 34.2 % (42.0-52.0); Hemoglobin 10.6 g/dL (11.7-16.6); Lymphocytes # 1.7 10^3/uL (0.8-4.8); Lymphocytes % 10.3 %; Mean Corpuscular Hemoglobin 23.9 pg (28.0-34.0); Mean Corpuscular Volume 77.2 fL (80-94); Mean Platelet Volume 10.7 fL (7.4-10.4); Monocytes # 1.8 10^3/uL (0.2-0.9); Monocytes % 11.1 %; Neutrophils # 12.78 10^3/uL (1.8-7.7); Neutrophils % 77.8 %; Nucleated Red Blood Cells % 0 %; Platelet Count 182 10^3/cmm (130-400); Red Blood Count 4.43 10^6/uL (4.1-5.3); Red Cell Distribution Width 15.9 % (12.1-15.1); White Blood Count 16.4 10^3/uL (4.0-10.0)
[2020-06-14] MEDS: morphine 4 mg/mL SDV 1 mL IVP (12:07)
[2020-06-14] MEDS: ondansetron 2 mg/ML SDV 2 mL 4 MG IVP (12:07)
[2020-06-14 12:17] LABS: Alanine Aminotransferase 124 U/L (0-41); Albumin Level 3.6 g/dL (3.5-5.2); Alkaline Phosphatase 97 IU/L (40-130); Anion Gap 13.1 (5-19); Aspartate Amino Transferase 78 U/L (0-40); Blood Urea Nitrogen 12 mg/dL (6-20); Calcium 8.8 mg/dL (8.5-10.5); Carbon Dioxide 23 mmol/L (22-29); Chloride 98 mmol/L (98-107); Globulin 3.8 g/dL (1.3-4.6); Glucose 120 mg/dL (65-115); Osmolality Calculated 271 mOsm/kg (285-295); Potassium 4.1 mmol/L (3.5-5.1); Sodium 130 mmol/L (136-145); Total Bilirubin 0.6 mg/dL (0.15-1.2); Total Protein 7.4 g/dL (6.6-8.7)
[2020-06-14 12:19] LABS: Troponin(5th) Baseline 6 ng/L (0-15)
--- NOTE | 2020-06-14 13:24 | PC.PHAR ---
pt states put his lasix and metoprolol tartrate 25mg on hold last week sometime-pt states he ran out of his buprenorphine-naloxone yesterday 06/13/20
== END 2020-06-14 13:49 | disposition left against medical advice (07) ==
PROVIDERS: Emergency Provider Family Medicine
DX: F19.10 Other psychoactive substance abuse, uncomplicated (principal); I26.90 Septic pulmonary embolism without acute cor pulmonale; B19.20 Unspecified viral hepatitis C without hepatic coma; I07.9 Rheumatic tricuspid valve disease, unspecified; R07.89 Other chest pain; Z77.22 Contact with and (suspected) exposure to environmental tobacco smoke (acute) (chronic); Z53.21 Procedure and treatment not carried out due to patient leaving prior to being seen by health care provider
CPT/HCPCS: 12345; 36415; 71045; 71275; 80053; 84484; 85025; 93005; 96374; 96375; 99283; 99284; J2270; J2405; Q9967

== ENCOUNTER 2020-06-18 18:06 | Emergency (ER) | payer SELFPAY ==
[2020-06-18 18:06] VITALS: BP 123/79; PULSE 103; RESP 18; TEMP 36.7; O2SAT 99; BMI 24.3
--- NOTE | 2020-06-18 18:14 | XRR_ITS ---
PROCEDURE INFORMATION: Exam: XR Chest, 1 View Exam date and time: 06/18/2020 6:26 PM Age: 19 years old Clinical indication: Chest pain; Prior surgery; Surgery type: Valve replacement TECHNIQUE: Imaging protocol: XR of the chest Views: 1 view. COMPARISON: CR XR chest 1V portable [id number] 06/14/2020 12:21 PM FINDINGS: Limitations: The study is made with less than full inspiration. Lungs: There has been some increase in the pulmonary infiltrates on the right. Please see the report of CT scan of the chest. Pleural spaces: There is small right pleural effusion which is new. Heart/Mediastinum: Unremarkable. No cardiomegaly. Bones/joints: There are findings of median sternotomy and tricuspid valve replacement stable from the previous examination. XR/XR chest 1V portable [id number] IMPRESSION: 1. Small right pleural effusion 2. Increasing pulmonary infiltrates.
--- NOTE | 2020-06-18 18:14 | ECG_ITS ---
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 Measurements Intervals [place] Rate: 106 P: 82 IN: 100 QRS: 78 QRSD: 89 T: 51 QT: 328 QTc: 437 Interpretive Statements SINUS TACHYCARDIA WITH SHORT IN INTERVAL LEFT ATRIAL ENLARGEMENT [-0.15mV P WAVE IN V1/V2] Compared to ECG 06/14/2020 11:32:34 No significant changes Electronically Signed On 06-19-2020 10:50:24 SHREDDED FILLER HOPPER FEEDER by Hernandez Whitaker M.D. [id number]
--- NOTE | 2020-06-18 18:14 | CTR_ITS ---
PROCEDURE INFORMATION: Exam: CT Angiography Chest With Contrast Exam date and time: 06/18/2020 6:26 PM Age: 19 years old Clinical indication: Shortness of breath; Prior surgery; Surgery date: 1-6 months; Surgery type: Valve; Patient HX: Recent rll embolism without anticoagulation. C/O worsening chest pain; Additional info: ? Pe 2 days ago, not anticoagulated, left ama TECHNIQUE: Imaging protocol: Computed tomographic angiography of the chest with contrast. 3D rendering (Not supervised by radiologist): MIP and/or 3D reconstructed images were created by the technologist. Radiation optimization: All CT scans at this facility use at least one of these dose optimization techniques: automated exposure control; mA and/or kV adjustment per patient size (includes targeted exams where dose is matched to clinical indication); or iterative reconstruction. Contrast material: OMNI 350; Contrast volume: 72 ml; Contrast route: INTRAVENOUS (IV); COMPARISON: CT angio chest PE protcl [id number] 06/14/2020 12:10 PM RADIATION DOSE METRICS: Total DLP (mGy-cm): 585.52 FINDINGS: Pulmonary arteries: There is small filling defect in the right lower lobe pulmonary artery not changed from previous which may represent the sequelae of prior pulmonary emboli. The arterial branch supplying anterior basal segment is truncated and this finding is new from the previous examination this corresponds with the region of markedly increased consolidation. The appearance of the vessel is more concerning for extrinsic compression rather than embolus. Aorta: Unremarkable. No aortic aneurysm. No aortic dissection. Lungs: There are multiple bilateral cavitary nodules as well as increasing areas of consolidation in the right lower lobe. The cavitary nodules are highly suspicious for septic emboli in these have increased from the previous examination with new nodules and areas of consolidation in the left lower lobe, new nodular consolidations in the middle lobe and markedly increased in consolidation in the right lower lobe. Pleural spaces: There are small bilateral pleural effusions more on the right than on the left. These are new from the prior examination. 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 Lymph nodes: There is mild right hilar and subcarinal adenopathy increased from previous examination. There is also mild prevascular adenopathy which is increased. Bones/joints: Unremarkable. No acute fracture. Soft tissues: Unremarkable. CT/CT angio chest PE protcl [id number] IMPRESSION: 1. There is been significant progression in the presence of pneumonia and septic emboli since 06/14/2020. 2. Small bilateral pleural effusions. 3. Findings suggest possibility of endocarditis as a source for the septic emboli. Correlation with clinical findings is suggested. 4. There is new vascular occlusion in the right lower lobe as described above. 5. 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 COMMENTS: THIS REPORT CONTAINS FINDINGS THAT MAY BE CRITICAL TO PATIENT CARE. The findings were verbally communicated via telephone conference with ALEJANDRA GARCÍA at 7:10 PM EMPLOYMENT ATTORNEY on 06/18/2020. The findings were acknowledged and understood. Radiation Dose CTDIVOL = (mGy): DLP = 585.52 (mGy-cm)
[2020-06-18 18:17] VITALS: O2SAT 99
[2020-06-18 18:44] LABS: Basophils # 0.1 10^3/uL (0.0-0.1); Basophils % 0.3 %; Eosinophils # 0.1 10^3/uL (0.0-0.8); Eosinophils % 0.4 %; Hematocrit 41.5 % (42.0-52.0); Hemoglobin 12.9 g/dL (11.7-16.6); Lymphocytes # 2.1 10^3/uL (0.8-4.8); Lymphocytes % 13.6 %; Mean Corpuscular HGB Conc 31.1 g/dL (30.0-36.0); Mean Corpuscular Hemoglobin 23.9 pg (28.0-34.0); Mean Corpuscular Volume 76.9 fL (80-94); Mean Platelet Volume 10.5 fL (7.4-10.4); Monocytes # 1.3 10^3/uL (0.2-0.9); Monocytes % 8.5 %; Neutrophils # 11.77 10^3/uL (1.8-7.7); Neutrophils % 76.5 %; Nucleated Red Blood Cells % 0 %; Platelet Count 261 10^3/cmm (130-400); Red Cell Distribution Width 15.9 % (12.1-15.1); White Blood Count 15.4 10^3/uL (4.0-10.0)
[2020-06-18] MEDS: iohexol 350 mg/mL 100 mL Btl IV (18:46)
[2020-06-18 19:22] VITALS: BP 113/78; PULSE 107; RESP 27; O2SAT 99
[2020-06-18] MEDS: piperacillin-tazobactam 3.375 GM in sodium chloride 0.9% (plus) 50 ML IV (19:22)
[2020-06-18 19:45] LABS: Lactate (Lactic Acid level) 1.5 mmol/L (0.5-2.2)
[2020-06-18 19:47] LABS: Troponin(5th) Baseline 10 ng/L (0-15)
[2020-06-18] MEDS: vancomycin 1,250 MG/250 ML PIGGYBACK 200 MG IV (19:52)
[2020-06-18 20:08] LABS: Add Urine Microscopic? NO
--- NOTE | 2020-06-18 20:14 | ECG_ITS ---
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 Measurements Intervals [place] Rate: 117 P: 75 [place]: 100 QRS: 85 QRSD: 89 T: 44 QT: 329 QTc: 459 Interpretive Statements SINUS TACHYCARDIA WITH SHORT WA INTERVAL LEFT ATRIAL ENLARGEMENT [-0.15mV P WAVE IN V1/V2] Compared to ECG 06/18/2020 18:24:44 No significant changes Electronically Signed On 06-19-2020 11:01:56 FAN BALANCER by Hernandez Whitaker M.D. [id number]
[2020-06-18 20:17] LABS: Bilirubin Urine Neg (Negative); Blood Urine Neg (Negative); Glucose Urine UA 1+ (Normal); Ketones Urine Negative (Negative); Leukocyte Esterase Urine Negative (Negative); Nitrate Urine Negative (Negative); Protein Urine Neg (Negative); Urine Appearance Clear (CLEAR); Urine Color Yellow (Yellow); Urobilinogen Urine 1 mg/dL (Negative); pH Urine 8 (5-7)
[2020-06-18 20:21] LABS: Amphetamines Screen Urine Positive (Negative); Barbiturates Screen Urine Negative (Negative); Benzodiazepines Screen Urine Negative (Negative); Cocaine Screen Urine Negative (Negative); Opiate Screen Urine Negative (Negative); PCP Screen Urine Negative (Negative); THC Screen Urine Positive (Negative)
[2020-06-18 20:29] LABS: Alanine Aminotransferase 129 U/L (0-41); Albumin Level 3.3 g/dL (3.5-5.2); Alkaline Phosphatase 111 IU/L (40-130); Anion Gap 13.9 (5-19); Aspartate Amino Transferase 99 U/L (0-40); Blood Urea Nitrogen 13 mg/dL (6-20); Calcium 8.7 mg/dL (8.5-10.5); Carbon Dioxide 25 mmol/L (22-29); Chloride 91 mmol/L (98-107); Globulin 4.9 g/dL (1.3-4.6); Glomerular Filtration Rate 106.5 mL/min (90-130); Glucose 89 mg/dL (65-115); Lipase 26 U/L (13-60); NT Pro B Type Natriuretic Pept 1829 pg/mL (0-125); Osmolality Calculated 262 mOsm/kg (285-295); Potassium 3.9 mmol/L (3.5-5.1); Sodium 126 mmol/L (136-145); Total Bilirubin 0.4 mg/dL (0.15-1.2); Total Protein 8.2 g/dL (6.6-8.7)
[2020-06-18] MEDS: fentaNYL 50 mcg/mL INJ 2mL 100 MCG IVP (20:54)
[2020-06-18 20:56] VITALS: BP 105/64; PULSE 110; RESP 27; O2SAT 97
--- NOTE | 2020-06-18 21:36 | W.ED.CHESTPA ---
Documented by User: Gris García MD, MSM 06/19/20 11:10 HPI - Chest Pain General: Chief Complaint: Chest Pain Stated Complaint: NOT FEELING WELL/ CP Time Seen by Provider: 06/18/20 18:07 Source: patient and EMS Mode of arrival: EMS Limitations: no limitations History of Present Illness: HPI narrative: This 19-year-old gentleman with a history of intravenous drug abuse, prior history of infective endocarditis presents to the emergency department with chest pain and feeling unwell. He was seen in this facility 4 days ago for the same thing but he left AGAINST MEDICAL ADVICE prior to being transferred to [facility] as he had septic emboli noted. He states that the chest pain is getting worse and so he is here to be evaluated MD complaint: chest pain Associated symptoms: Deny abdominal pain, dyspnea, fever(s), nausea, palpitations or vomiting Review of Systems General: Reports: 10 or more systems reviewed and unremarkable except in HPI and below Const: Denies: fever(s), chills or body aches Eyes: Denies: change in vision or blurry vision ENMT: Denies: throat pain, enlarged tonsils, odynophagia, hoarseness, mouth pain or swelling of lips/tongue Card: Reports: chest pain; Denies: palpitations, irregular heart rhythm, edema or swelling of feet/ankles Resp: Denies: dyspnea, productive cough or non-productive cough GI: Denies: abdominal pain, nausea or vomiting : Denies: flank pain, dysuria, urinary frequency, urinary urgency or urinary hesitancy Musc: Denies: neck pain, back pain or extremity swelling Skin/Breast: Denies: rash, pruritus or erythema Neuro: Denies: headache(s), numbness in extremities or weakness in extremities Endo: Denies: polyuria, polydipsia or tired all the time PFSH ED PFSH: Medical History Polysubstance abuse Surgical History History of right knee surgery Family History Mother Substance abuse Social History (Reviewed 06/19/20 @ 00:15 by Gris García MD, [facility] [place]) Smoking and tobacco status: never smoked Second hand smoke exposure: Yes Alcohol intake: current Alcohol intake frequency: few times a week Alcohol type: beer Physical Exam Const: COMMON NORMALS: no acute distress, average body habitus, patient oriented x3, no limitations, healthy appearing, alert and well nourished HENMT: COMMON NORMALS: normocephalic, atraumatic and moist oral mucous membranes HEAD & SCALP: normocephalic and atraumatic Neck/C-Spine: COMMON NORMALS: no meningeal signs and no JVD Chest: COMMONS NORMALS: normal inspection of the chest and normal palpation of entire chest wall Resp: COMMON NORMALS: normal respiratory effort, No retractions, No use of accessory muscles, clear to auscultation bilaterally and percussion normal AUSCULTATION: clear to auscultation bilaterally PERCUSSION: percussion normal Cardio: COMMON NORMALS: no JVD, regular rate, regular rhythm, S1 normal heart sound present, S2 normal heart sound present, No gallops present (Cardio), No clicks present (Cardio), No murmurs present (Cardio), No rub (Cardio) and Peripheral pulses 2+ throughout RATE: regular rate RHYTHM: regular rhythm HEART SOUNDS: S1 normal heart sound present and S2 normal heart sound present PERIPHERAL PULSES: Peripheral pulses 2+ throughout GI: COMMON NORMALS: Normal to inspection, nondistended, normoactive bowel sounds present, Soft to palpation, non-tender, No hepatosplenomegaly present, no masses and no bruits PALPATION: Yes Soft to palpation and Yes No hepatosplenomegaly present Extremity: COMMON NORMALS: normal to inspection, full ROM, capillary refill normal, no calf tenderness and no pedal edema Neuro: COMMON NORMALS: patient oriented x3 SENSORIUM/ORIENTATION: Yes alert MENINGEAL SIGNS: Yes no meningeal signs Skin: COMMON NORMALS: no rashes or lesions noted, no wounds, turgor normal, no jaundice, no petechiae and no mottling NARRATIVE SKIN EXAM: Fresh track salcedo noted on his arm GENERAL SKIN EXAM: no rashes or lesions noted and turgor normal Course Consultations: Consultation #1: Discussed the patient with Dr. Barroso, gold frame assembler at [facility] in [place]. She kindly accepted patient to her service. Time: 21:31 Vital Signs: Vital signs: Vital Signs Temperature 98.1 F 06/18/20 18:06 Pulse Rate 117 H 06/19/20 05:45 Respiratory Rate 18 06/19/20 07:32 Blood Pressure 120/63 06/19/20 05:45 Pulse Oximetry 98 06/19/20 07:32 MDM - Chest Pain MDM Narrative: Medical decision making narrative: 19-year-old male patient with a history of IV drug abuse and who presents to the emergency department with chest pain. He had left AGAINST MEDICAL ADVICE 4 days ago when he was here. He had septic emboli noted on a CTA done 4 days ago and on repeating it today he has much worsening of the septic emboli in both lungs. Most likely the source of the septic emboli is from an infective endocarditis. The patient is given a dose of vancomycin and Zosyn in the emergency department. He is being transferred to [facility] in [place] where he had his original valve replacement surgery done. The patient has been strongly counseled on the importance of following through with his medical care as his disease is progressively worsening and if he continues to sign AGAINST MEDICAL ADVICE he will most likely end up . He agreed to cooperate and stay this time. There are no beds at [facility] and so he will be transferred in the morning but he has been accepted. Medical Records: Attestation: I reviewed the patient's medical records. Lab Data: Attestation: I reviewed the patient's lab results. Labs: Lab Results 06/18/20 06/18/20 06/18/20 Range/Units 18:39 18:59 18:59 WBC 15.4 H (4.0-10.0) 10^3/ uL RBC 5.40 H (4.1-5.3) 10^6/u L Hgb 12.9 (11.7-16.6) g/dL Hct 41.5 L (42.0-52.0) % MCV 76.9 L (80-94) fL MCH 23.9 L (28.0-34.0) pg MCHC 31.1 (30.0-36.0) g/dL RDW 15.9 H (12.1-15.1) % Plt Count 261 (130-400) 10^3/c mm MPV 10.5 H (7.4-10.4) fL Neut % (Auto) 76.5 % Lymph % (Auto) 13.6 % [place] % (Auto) 8.5 % Eos % (Auto) 0.4 % Baso % (Auto) 0.3 % Neut # (Auto) 11.77 H (1.8-7.7) 10^3/u L Lymph # (Auto) 2.1 (0.8-4.8) 10^3/u L [place] # (Auto) 1.3 H (0.2-0.9) 10^3/u L Eos # (Auto) 0.1 (0.0-0.8) 10^3/u L Baso # (Auto) 0.1 (0.0-0.1) 10^3/u L Nucleated RBC % (a uto) 0 % Nucleated RBCs # 0.0 /100WBC Sodium 126 L (136-145) mmol/L Potassium 3.9 (3.5-5.1) mmol/L Chloride 91 L (98-107) mmol/L Carbon Dioxide 25 (22-29) mmol/L Anion Gap 13.9 (5-19) BUN 13 (6-20) mg/dL Creatinine 0.9 (0.7-1.2) mg/dL GFR Calculation 106.5 (90-130) mL/min Glucose 89 (65-115) mg/dL Calculated Osmolal ity 262 L (285-295) mOsm/k g Lactate (0.5-2.2) mmol/L Calcium 8.7 (8.5-10.5) mg/dL Total Bilirubin 0.4 (0.15-1.2) mg/dL AST 99 H (0-40) U/L ALT 129 H (0-41) U/L Alkaline Phosphata se 111 (40-130) IU/L Troponin T Baselin e 10 (0-15) ng/L Troponin T 120 Min [place] (0-15) ng/L Delta Troponin T (0-10) ABS# Troponin T Hi Sens 6Hr (0-15) ng/L Troponin T Hi Sens 6Hr Delta (0-12) ng/L NT-Pro-B Natriuret Pep 1829 H (0-125) pg/mL Total Protein 8.2 (6.6-8.7) g/dL Albumin 3.3 L (3.5-5.2) g/dL Globulin 4.9 H (1.3-4.6) g/dL Lipase 26 (13-60) U/L Urine Color (Yellow) Urine Appearance (CLEAR) Urine pH (5-7) Ur Specific Gravit y (1.005-1.030) Urine Protein (Negative) Urine Glucose (UA) (Normal) Urine Ketones (Negative) Urine Blood (Negative) Urine Nitrate (Negative) Urine Bilirubin (Negative) Urine Urobilinogen (Negative) mg/dL Ur Leukocyte Katt ase (Negative) Urine Opiates Scre en (Negative) ng/mL Ur Barbiturates Sc reen (Negative) ng/mL Ur Phencyclidine S crn (Negative) ng/mL Ur Amphetamines Sc reen (Negative) ng/mL U Benzodiazepines Scrn (Negative) ng/mL Urine Cocaine Scre en (Negative) ng/mL U Marijuana (THC) Screen (Negative) ng/mL SARS-CoV-2 Ag (Rap id) (Negative) 06/18/20 06/18/20 06/18/20 Range/Units 18:59 19:48 19:48 WBC (4.0-10.0) 10^3/ uL RBC (4.1-5.3) 10^6/u L Hgb (11.7-16.6) g/dL Hct (42.0-52.0) % MCV (80-94) fL MCH (28.0-34.0) pg MCHC (30.0-36.0) g/dL RDW (12.1-15.1) % Plt Count (130-400) 10^3/c mm MPV (7.4-10.4) fL Neut % (Auto) % Lymph % (Auto) % [place] % (Auto) % Eos % (Auto) % Baso % (Auto) % Neut # (Auto) (1.8-7.7) 10^3/u L Lymph # (Auto) (0.8-4.8) 10^3/u L [place] # (Auto) (0.2-0.9) 10^3/u L Eos # (Auto) (0.0-0.8) 10^3/u L Baso # (Auto) (0.0-0.1) 10^3/u L Nucleated RBC % (a uto) % Nucleated RBCs # /100WBC Sodium (136-145) mmol/L Potassium (3.5-5.1) mmol/L Chloride (98-107) mmol/L Carbon Dioxide (22-29) mmol/L Anion Gap (5-19) BUN (6-20) mg/dL Creatinine (0.7-1.2) mg/dL GFR Calculation (90-130) mL/min Glucose (65-115) mg/dL Calculated Osmolal ity (285-295) mOsm/k g Lactate 1.5 (0.5-2.2) mmol/L Calcium (8.5-10.5) mg/dL Total Bilirubin (0.15-1.2) mg/dL AST (0-40) U/L ALT (0-41) U/L Alkaline Phosphata se (40-130) IU/L Troponin T Baselin e (0-15) ng/L Troponin T 120 Min [place] (0-15) ng/L Delta Troponin T (0-10) ABS# Troponin T Hi Sens 6Hr (0-15) ng/L Troponin T Hi Sens 6Hr Delta (0-12) ng/L NT-Pro-B Natriuret Pep (0-125) pg/mL Total Protein (6.6-8.7) g/dL Albumin (3.5-5.2) g/dL Globulin (1.3-4.6) g/dL Lipase (13-60) U/L Urine Color Yellow (Yellow) Urine Appearance Clear (CLEAR) Urine pH 8 H (5-7) Ur Specific Gravit y 1.010 (1.005-1.030) Urine Protein Neg (Negative) Urine Glucose (UA) 1+ (Normal) Urine Ketones Negative (Negative) Urine Blood Neg (Negative) Urine Nitrate Negative (Negative) Urine Bilirubin Neg (Negative) Urine Urobilinogen 1 H (Negative) mg/dL Ur Leukocyte Katt ase Negative (Negative) Urine Opiates Scre en Negative (Negative) ng/mL Ur Barbiturates Sc reen Negative (Negative) ng/mL Ur Phencyclidine S crn Negative (Negative) ng/mL Ur Amphetamines Sc reen Positive H (Negative) ng/mL U Benzodiazepines Scrn Negative (Negative) ng/mL Urine Cocaine Scre en Negative (Negative) ng/mL U Marijuana (THC) Screen Positive H (Negative) ng/mL SARS-CoV-2 Ag (Rap id) (Negative) 06/18/20 06/18/20 06/19/20 Range/Units 21:43 23:25 01:17 WBC (4.0-10.0) 10^3/ uL RBC (4.1-5.3) 10^6/u L Hgb (11.7-16.6) g/dL Hct (42.0-52.0) % MCV (80-94) fL MCH (28.0-34.0) pg MCHC (30.0-36.0) g/dL RDW (12.1-15.1) % Plt Count (130-400) 10^3/c mm MPV (7.4-10.4) fL Neut % (Auto) % Lymph % (Auto) % [place] % (Auto) % Eos % (Auto) % Baso % (Auto) % Neut # (Auto) (1.8-7.7) 10^3/u L Lymph # (Auto) (0.8-4.8) 10^3/u L [place] # (Auto) (0.2-0.9) 10^3/u L Eos # (Auto) (0.0-0.8) 10^3/u L Baso # (Auto) (0.0-0.1) 10^3/u L Nucleated RBC % (a uto) % Nucleated RBCs # /100WBC Sodium (136-145) mmol/L Potassium (3.5-5.1) mmol/L Chloride (98-107) mmol/L Carbon Dioxide (22-29) mmol/L Anion Gap (5-19) BUN (6-20) mg/dL Creatinine (0.7-1.2) mg/dL GFR Calculation (90-130) mL/min Glucose (65-115) mg/dL Calculated Osmolal ity (285-295) mOsm/k g Lactate (0.5-2.2) mmol/L Calcium (8.5-10.5) mg/dL Total Bilirubin (0.15-1.2) mg/dL AST (0-40) U/L ALT (0-41) U/L Alkaline Phosphata se (40-130) IU/L Troponin T Baselin e (0-15) ng/L Troponin T 120 Min [place] 8.68 (0-15) ng/L Delta Troponin T -1.32 L (0-10) ABS# Troponin T Hi Sens 6Hr 9.58 (0-15) ng/L Troponin T Hi Sens 6Hr Delta -0.42 L (0-12) ng/L NT-Pro-B Natriuret Pep (0-125) pg/mL Total Protein (6.6-8.7) g/dL Albumin (3.5-5.2) g/dL Globulin (1.3-4.6) g/dL Lipase (13-60) U/L Urine Color (Yellow) Urine Appearance (CLEAR) Urine pH (5-7) Ur Specific Gravit y (1.005-1.030) Urine Protein (Negative) Urine Glucose (UA) (Normal) Urine Ketones (Negative) Urine Blood (Negative) Urine Nitrate (Negative) Urine Bilirubin (Negative) Urine Urobilinogen (Negative) mg/dL Ur Leukocyte Katt ase (Negative) Urine Opiates Scre en (Negative) ng/mL Ur Barbiturates Sc reen (Negative) ng/mL Ur Phencyclidine S crn (Negative) ng/mL Ur Amphetamines Sc reen (Negative) ng/mL U Benzodiazepines Scrn (Negative) ng/mL Urine Cocaine Scre en (Negative) ng/mL U Marijuana (THC) Screen (Negative) ng/mL SARS-CoV-2 Ag (Rap id) Negative (Negative) Imaging Data^: CTA Chest: Attestation: I personally reviewed and interpreted this imaging study as follows: Radiologist's impression: [address] [address] [address] Scan Report Signed Patient: Adams RankinUnsenati #: [id number] : 2000Acct#:[id number] Age/Sex: 19 / MADM Date: 06/18/20 Loc: ERRoom/Bed: Attending Dr: Ordering Provider/Ordering MD: Gris García MD, [facility] [place] Date of Service: 06/18/20 Procedure(s): CT angio chest PE protcl [id number] Accession Number(s): [id number] Report Number: [id number] PROCEDURE INFORMATION: Exam: CT Angiography Chest With Contrast Exam date and time: 06/18/2020 6:26 PM Age: 19 years old Clinical indication: Shortness of breath; Prior surgery; Surgery date: 1-6 months; Surgery type: Valve; Patient HX: Recent rll embolism without anticoagulation. C/O worsening chest pain; Additional info: ? Pe 2 days ago, not anticoagulated, left ama TECHNIQUE: Imaging protocol: Computed tomographic angiography of the chest with contrast. 3D rendering (Not supervised by radiologist): MIP and/or 3D reconstructed images were created by the technologist. Radiation optimization: All CT scans at this facility use at least one of these dose optimization techniques: automated exposure control; mA and/or kV adjustment per patient size (includes targeted exams where dose is matched to clinical indication); or iterative reconstruction. Contrast material: OMNI 350; Contrast volume: 72 ml; Contrast route: INTRAVENOUS (IV); COMPARISON: CT angio chest PE protcl [id number] 06/14/2020 12:10 PM RADIATION DOSE METRICS: Total DLP (mGy-cm): 585.52 FINDINGS: Pulmonary arteries: There is small filling defect in the right lower lobe pulmonary artery not changed from previous which may represent the sequelae of prior pulmonary emboli. The arterial branch supplying anterior basal segment is truncated and this finding is new from the previous examination this corresponds with the region of markedly increased consolidation. The appearance of the vessel is more concerning for extrinsic compression rather than embolus. Aorta: Unremarkable. No aortic aneurysm. No aortic dissection. Lungs: There are multiple bilateral cavitary nodules as well as increasing areas of consolidation in the right lower lobe. The cavitary nodules are highly suspicious for septic emboli in these have increased from the previous examination with new nodules and areas of consolidation in the left lower lobe, new nodular consolidations in the middle lobe and markedly increased in consolidation in the right lower lobe. Pleural spaces: There are small bilateral pleural effusions more on the right than on the left. These are new from the prior examination. 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 Lymph nodes: There is mild right hilar and subcarinal adenopathy increased from previous examination. There is also mild prevascular adenopathy which is increased. Bones/joints: Unremarkable. No acute fracture. Soft tissues: Unremarkable. CT/CT angio chest PE protcl [id number] IMPRESSION: 1. There is been significant progression in the presence of pneumonia and septic emboli since 06/14/2020. 2. Small bilateral pleural effusions. 3. Findings suggest possibility of endocarditis as a source for the septic emboli. Correlation with clinical findings is suggested. 4. There is new vascular occlusion in the right lower lobe as described above. 5. 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 COMMENTS: THIS REPORT CONTAINS FINDINGS THAT MAY BE CRITICAL TO PATIENT CARE. The findings were verbally communicated via telephone conference with GRIS GARCÍA at 7:10 PM [employer] MECH[employer]ICAL DESIGNER on 06/18/2020. The findings were acknowledged and understood. Radiation Dose CTDIVOL = (mGy): DLP = 585.52 (mGy-cm) Dictated By:Gabriel Cabezas Signed By:Laura Cabezas Date/Time:06/18/201914 DD/ 13 CXR: Attestation: I personally reviewed and interpreted this imaging study as follows: Radiologist's impression: [address] [address] XRay Report Signed Patient: Adams Rankin #: [id number] : 2000Acct#:[id number] Age/Sex: 19 / MADM Date: 06/18/20 Loc: [facility]/Bed: Attending Dr: Ordering Provider/Ordering MD: Gris García MD, [facility] [place] [facility] Date of Service: 06/18/20 Procedure(s): XR chest 1V portable 19990 Accession Number(s): [id number] Report Number: [id number] PROCEDURE INFORMATION: Exam: XR Chest, 1 View Exam date and time: 06/18/2020 6:26 PM Age: 19 years old Clinical indication: Chest pain; Prior surgery; Surgery type: Valve replacement TECHNIQUE: Imaging protocol: XR of the chest Views: 1 view. COMPARISON: CR XR chest 1V portable [id number] 06/14/2020 12:21 PM FINDINGS: Limitations: The study is made with less than full inspiration. Lungs: There has been some increase in the pulmonary infiltrates on the right. Please see the report of CT scan of the chest. Pleural spaces: There is small right pleural effusion which is new. Heart/Mediastinum: Unremarkable. No cardiomegaly. Bones/joints: There are findings of median sternotomy and tricuspid valve replacement stable from the previous examination. XR/XR chest 1V portable [id number] IMPRESSION: 1. Small right pleural effusion 2. Increasing pulmonary infiltrates. Dictated By:Gabriel Cabezas Signed By:Luis Cabezasigned Date/Time:06/18/201915 DD/ 14 EKG Data^: EKG 1: Attestation: I personally reviewed and interpreted this EKG as follows: EKG interpretation date: 06/18/20 EKG interpretation time: 18:24 Prior EKG tracings: available for review Interpretation: Sinus tachycardia with short NM interval. Heart rate 106 bpm. Left atrial enlargement. No ST changes. EKG 2: Attestation: I personally reviewed and interpreted this EKG as follows: EKG interpretation date: 06/18/20 EKG interpretation time: 20:49 Prior EKG tracings: available for review Interpretation: Sinus tachycardia. Heart rate [address] changes. EKG 3: Attestation: I personally reviewed and interpreted this EKG as follows: EKG interpretation date: 06/19/20 EKG interpretation time: 00:14 Prior EKG tracings: available for review Interpretation: Sinus tachycardia with short NM interval. Heart rate 1 1 6 bpm. Left atrial enlargement. No ST changes. No significant change from earlier. Discharge Plan Discharge Patient Disposition: Xfer Short-Term Hosp Clinical Impression: Polysubstance abuse Acute infective endocarditis Qualifiers: Infective endocarditis organism: bacterial Qualified Code(s): I33.0 - Acute and subacute infective endocarditis Hepatitis C Qualifiers: Viral hepatitis chronicity: unspecified Hepatic coma status: without hepatic coma Qualified Code(s): B19.20 - Unspecified viral hepatitis C without hepatic coma Chest pain Qualifiers: Chest pain type: unspecified Qualified Code(s): R07.9 - Chest pain, unspecified Acute septic pulmonary embolism Qualifiers: Acute cor pulmonale presence: without acute cor pulmonale Qualified Code(s): I26.90 - Septic pulmonary embolism without acute cor pulmonale Condition: Stable Discharge Orders: Transfer Out of Facility (Order); Ordered 06/18/20 Ordered By: Gris García Sign Out Sign Out Data: Patient Sign Out occurred on 06/19/20 at 06:38. Patient's care was discussed, and care was transferred from to Jeremías Shah DO. Coding Level of Care Code ED Air Hose Coupler for Chg Fwd Exam Comprehensive Documented by User: Chau Alexander DO 06/19/20 06:13 HPI - Chest Pain General: Chief Complaint: Chest Pain Stated Complaint: NOT FEELING WELL/ CP Time Seen by Provider: 06/18/20 18:07 PFSH ED PFSH: Medical History (Reviewed 06/19/20 @ 00:15 by Gris García MD, [facility] [place]) Polysubstance abuse Surgical History (Reviewed 06/19/20 @ 00:15 by Gris García MD, [facility] [place]) History of right knee surgery Family History (Reviewed 06/19/20 @ 00:15 by Gris García MD, [facility] [place]) Mother Substance abuse Social History (Reviewed 06/19/20 @ 00:15 by Gris García MD, [facility] [place]) Smoking and tobacco status: never smoked Second hand smoke exposure: Yes Alcohol intake: current Alcohol intake frequency: few times a week Alcohol type: beer Course Vital Signs: Vital signs: Vital Signs Temperature 98.1 F 06/18/20 18:06 Pulse Rate 117 H 06/19/20 05:45 Respiratory Rate 18 06/19/20 07:32 Blood Pressure 120/63 06/19/20 05:45 Pulse Oximetry 98 06/19/20 07:32 MDM - Chest Pain MDM Narrative: Medical decision making narrative: Patient has remained stable. He was checked out to me by Dr. García at shift change. He is getting his next doses of vancomycin and Zosyn this morning, which pharmacy will dose for us. Again, he has been accepted at [facility] in [place], and we are awaiting a bed clearance. Lab Data: Labs: Lab Results 06/18/20 06/18/20 06/18/20 Range/Units 18:39 18:59 18:59 WBC 15.4 H (4.0-10.0) 10^3/ uL RBC 5.40 H (4.1-5.3) 10^6/u L Hgb 12.9 (11.7-16.6) g/dL Hct 41.5 L (42.0-52.0) % MCV 76.9 L (80-94) fL MCH 23.9 L (28.0-34.0) pg MCHC 31.1 (30.0-36.0) g/dL RDW 15.9 H (12.1-15.1) % Plt Count 261 (130-400) 10^3/c mm MPV 10.5 H (7.4-10.4) fL Neut % (Auto) 76.5 % Lymph % (Auto) 13.6 % [place] % (Auto) 8.5 % Eos % (Auto) 0.4 % Baso % (Auto) 0.3 % Neut # (Auto) 11.77 H (1.8-7.7) 10^3/u L Lymph # (Auto) 2.1 (0.8-4.8) 10^3/u L [place] # (Auto) 1.3 H (0.2-0.9) 10^3/u L Eos # (Auto) 0.1 (0.0-0.8) 10^3/u L Baso # (Auto) 0.1 (0.0-0.1) 10^3/u L Nucleated RBC % (a uto) 0 % Nucleated RBCs # 0.0 /100WBC Sodium 126 L (136-145) mmol/L Potassium 3.9 (3.5-5.1) mmol/L Chloride 91 L (98-107) mmol/L Carbon Dioxide 25 (22-29) mmol/L Anion Gap 13.9 (5-19) BUN 13 (6-20) mg/dL Creatinine 0.9 (0.7-1.2) mg/dL GFR Calculation 106.5 (90-130) mL/min Glucose 89 (65-115) mg/dL Calculated Osmolal ity 262 L (285-295) mOsm/k g Lactate (0.5-2.2) mmol/L Calcium 8.7 (8.5-10.5) mg/dL Total Bilirubin 0.4 (0.15-1.2) mg/dL AST 99 H (0-40) U/L ALT 129 H (0-41) U/L Alkaline Phosphata se 111 (40-130) IU/L Troponin T Baselin e 10 (0-15) ng/L Troponin T 120 Min [place] (0-15) ng/L Delta Troponin T (0-10) ABS# Troponin T Hi Sens 6Hr (0-15) ng/L Troponin T Hi Sens 6Hr Delta (0-12) ng/L NT-Pro-B Natriuret Pep 1829 H (0-125) pg/mL Total Protein 8.2 (6.6-8.7) g/dL Albumin 3.3 L (3.5-5.2) g/dL Globulin 4.9 H (1.3-4.6) g/dL Lipase 26 (13-60) U/L Urine Color (Yellow) Urine Appearance (CLEAR) Urine pH (5-7) Ur Specific Gravit y (1.005-1.030) Urine Protein (Negative) Urine Glucose (UA) (Normal) Urine Ketones (Negative) Urine Blood (Negative) Urine Nitrate (Negative) Urine Bilirubin (Negative) Urine Urobilinogen (Negative) mg/dL Ur Leukocyte Katt ase (Negative) Urine Opiates Scre en (Negative) ng/mL Ur Barbiturates Sc reen (Negative) ng/mL Ur Phencyclidine S crn (Negative) ng/mL Ur Amphetamines Sc reen (Negative) ng/mL U Benzodiazepines Scrn (Negative) ng/mL Urine Cocaine Scre en (Negative) ng/mL U Marijuana (THC) Screen (Negative) ng/mL SARS-CoV-2 Ag (Rap id) (Negative) 06/18/20 06/18/20 06/18/20 Range/Units 18:59 19:48 19:48 WBC (4.0-10.0) 10^3/ uL RBC (4.1-5.3) 10^6/u L Hgb (11.7-16.6) g/dL Hct (42.0-52.0) % MCV (80-94) fL MCH (28.0-34.0) pg MCHC (30.0-36.0) g/dL RDW (12.1-15.1) % Plt Count (130-400) 10^3/c mm MPV (7.4-10.4) fL Neut % (Auto) % Lymph % (Auto) % [place] % (Auto) % Eos % (Auto) % Baso % (Auto) % Neut # (Auto) (1.8-7.7) 10^3/u L Lymph # (Auto) (0.8-4.8) 10^3/u L [place] # (Auto) (0.2-0.9) 10^3/u L Eos # (Auto) (0.0-0.8) 10^3/u L Baso # (Auto) (0.0-0.1) 10^3/u L Nucleated RBC % (a uto) % Nucleated RBCs # /100WBC Sodium (136-145) mmol/L Potassium (3.5-5.1) mmol/L Chloride (98-107) mmol/L Carbon Dioxide (22-29) mmol/L Anion Gap (5-19) BUN (6-20) mg/dL Creatinine (0.7-1.2) mg/dL GFR Calculation (90-130) mL/min Glucose (65-115) mg/dL Calculated Osmolal ity (285-295) mOsm/k g Lactate 1.5 (0.5-2.2) mmol/L Calcium (8.5-10.5) mg/dL Total Bilirubin (0.15-1.2) mg/dL AST (0-40) U/L ALT (0-41) U/L Alkaline Phosphata se (40-130) IU/L Troponin T Baselin e (0-15) ng/L Troponin T 120 Min [place] (0-15) ng/L Delta Troponin T (0-10) ABS# Troponin T Hi Sens 6Hr (0-15) ng/L Troponin T Hi Sens 6Hr Delta (0-12) ng/L NT-Pro-B Natriuret Pep (0-125) pg/mL Total Protein (6.6-8.7) g/dL Albumin (3.5-5.2) g/dL Globulin (1.3-4.6) g/dL Lipase (13-60) U/L Urine Color Yellow (Yellow) Urine Appearance Clear (CLEAR) Urine pH 8 H (5-7) Ur Specific Gravit y 1.010 (1.005-1.030) Urine Protein Neg (Negative) Urine Glucose (UA) 1+ (Normal) Urine Ketones Negative (Negative) Urine Blood Neg (Negative) Urine Nitrate Negative (Negative) Urine Bilirubin Neg (Negative) Urine Urobilinogen 1 H (Negative) mg/dL Ur Leukocyte Katt ase Negative (Negative) Urine Opiates Scre en Negative (Negative) ng/mL Ur Barbiturates Sc reen Negative (Negative) ng/mL Ur Phencyclidine S crn Negative (Negative) ng/mL Ur Amphetamines Sc reen Positive H (Negative) ng/mL U Benzodiazepines Scrn Negative (Negative) ng/mL Urine Cocaine Scre en Negative (Negative) ng/mL U Marijuana (THC) Screen Positive H (Negative) ng/mL SARS-CoV-2 Ag (Rap id) (Negative) 06/18/20 06/18/20 06/19/20 Range/Units 21:43 23:25 01:17 WBC (4.0-10.0) 10^3/ uL RBC (4.1-5.3) 10^6/u L Hgb (11.7-16.6) g/dL Hct (42.0-52.0) % MCV (80-94) fL MCH (28.0-34.0) pg MCHC (30.0-36.0) g/dL RDW (12.1-15.1) % Plt Count (130-400) 10^3/c mm MPV (7.4-10.4) fL Neut % (Auto) % Lymph % (Auto) % [place] % (Auto) % Eos % (Auto) % Baso % (Auto) % Neut # (Auto) (1.8-7.7) 10^3/u L Lymph # (Auto) (0.8-4.8) 10^3/u L [place] # (Auto) (0.2-0.9) 10^3/u L Eos # (Auto) (0.0-0.8) 10^3/u L Baso # (Auto) (0.0-0.1) 10^3/u L Nucleated RBC % (a uto) % Nucleated RBCs # /100WBC Sodium (136-145) mmol/L Potassium (3.5-5.1) mmol/L Chloride (98-107) mmol/L Carbon Dioxide (22-29) mmol/L Anion Gap (5-19) BUN (6-20) mg/dL Creatinine (0.7-1.2) mg/dL GFR Calculation (90-130) mL/min Glucose (65-115) mg/dL Calculated Osmolal ity (285-295) mOsm/k g Lactate (0.5-2.2) mmol/L Calcium (8.5-10.5) mg/dL Total Bilirubin (0.15-1.2) mg/dL AST (0-40) U/L ALT (0-41) U/L Alkaline Phosphata se (40-130) IU/L Troponin T Baselin e (0-15) ng/L Troponin T 120 Min [place] 8.68 (0-15) ng/L Delta Troponin T -1.32 L (0-10) ABS# Troponin T Hi Sens 6Hr 9.58 (0-15) ng/L Troponin T Hi Sens 6Hr Delta -0.42 L (0-12) ng/L NT-Pro-B Natriuret Pep (0-125) pg/mL Total Protein (6.6-8.7) g/dL Albumin (3.5-5.2) g/dL Globulin (1.3-4.6) g/dL Lipase (13-60) U/L Urine Color (Yellow) Urine Appearance (CLEAR) Urine pH (5-7) Ur Specific Gravit y (1.005-1.030) Urine Protein (Negative) Urine Glucose (UA) (Normal) Urine Ketones (Negative) Urine Blood (Negative) Urine Nitrate (Negative) Urine Bilirubin (Negative) Urine Urobilinogen (Negative) mg/dL Ur Leukocyte Katt ase (Negative) Urine Opiates Scre en (Negative) ng/mL Ur Barbiturates Sc reen (Negative) ng/mL Ur Phencyclidine S crn (Negative) ng/mL Ur Amphetamines Sc reen (Negative) ng/mL U Benzodiazepines Scrn (Negative) ng/mL Urine Cocaine Scre en (Negative) ng/mL U Marijuana (THC) Screen (Negative) ng/mL SARS-CoV-2 Ag (Rap id) Negative (Negative) Discharge Plan Discharge Patient Disposition: Xfer Short-Term Hosp Clinical Impression: Polysubstance abuse Acute infective endocarditis Qualifiers: Infective endocarditis organism: bacterial Qualified Code(s): I33.0 - Acute and subacute infective endocarditis Hepatitis C Qualifiers: Viral hepatitis chronicity: unspecified Hepatic coma status: without hepatic coma Qualified Code(s): B19.20 - Unspecified viral hepatitis C without hepatic coma Chest pain Qualifiers: Chest pain type: unspecified Qualified Code(s): R07.9 - Chest pain, unspecified Acute septic pulmonary embolism Qualifiers: Acute cor pulmonale presence: without acute cor pulmonale Qualified Code(s): I26.90 - Septic pulmonary embolism without acute cor pulmonale Condition: Stable Discharge Orders: Transfer Out of Facility (Order); Ordered 06/18/20 Ordered By: Gris García Sign Out Sign Out Data: Patient Sign Out occurred on 06/19/20 at 06:38. Patient's care was discussed, and care was transferred from to Jeremías Shah DO. Coding Level of Care Code ED Air Hose Coupler for Chg Fwd Exam Comprehensive Documented by User: Jeremías Shah DO 06/19/20 15:04 HPI - Chest Pain General: Chief Complaint: Chest Pain Stated Complaint: NOT FEELING WELL/ CP Time Seen by Provider: 06/18/20 18:07 [facility] ED PFSH: Medical History (Reviewed 06/19/20 @ 00:15 by Gris García MD, [facility] [place]) Polysubstance abuse Surgical History (Reviewed 06/19/20 @ 00:15 by Gris García MD, [facility] [place]) History of right knee surgery Family History (Reviewed 06/19/20 @ 00:15 by Gris García MD, [facility] [place]) Mother Substance abuse Social History (Reviewed 06/19/20 @ 00:15 by Gris García MD, [facility] [place]) Smoking and tobacco status: never smoked Second hand smoke exposure: Yes Alcohol intake: current Alcohol intake frequency: few times a week Alcohol type: beer Course Vital Signs: Vital signs: Vital Signs Temperature 98.1 F 06/18/20 18:06 Pulse Rate 117 H 06/19/20 05:45 Respiratory Rate 18 06/19/20 07:32 Blood Pressure 120/63 06/19/20 05:45 Pulse Oximetry 98 06/19/20 07:32 MDM - Chest Pain MDM Narrative: Medical decision making narrative: Antibiotics are continuing. We received bed assignment from [place]. Making arrangements for transport. Lab Data: Labs: Lab Results 06/18/20 06/18/20 06/18/20 Range/Units 18:39 18:59 18:59 WBC 15.4 H (4.0-10.0) 10^3/ uL RBC 5.40 H (4.1-5.3) 10^6/u L Hgb 12.9 (11.7-16.6) g/dL Hct 41.5 L (42.0-52.0) % MCV 76.9 L (80-94) fL MCH 23.9 L (28.0-34.0) pg MCHC 31.1 (30.0-36.0) g/dL RDW 15.9 H (12.1-15.1) % Plt Count 261 (130-400) 10^3/c mm MPV 10.5 H (7.4-10.4) fL Neut % (Auto) 76.5 % Lymph % (Auto) 13.6 % [place] % (Auto) 8.5 % Eos % (Auto) 0.4 % Baso % (Auto) 0.3 % Neut # (Auto) 11.77 H (1.8-7.7) 10^3/u L Lymph # (Auto) 2.1 (0.8-4.8) 10^3/u L [place] # (Auto) 1.3 H (0.2-0.9) 10^3/u L Eos # (Auto) 0.1 (0.0-0.8) 10^3/u L Baso # (Auto) 0.1 (0.0-0.1) 10^3/u L Nucleated RBC % (a uto) 0 % Nucleated RBCs # 0.0 /100WBC Sodium 126 L (136-145) mmol/L Potassium 3.9 (3.5-5.1) mmol/L Chloride 91 L (98-107) mmol/L Carbon Dioxide 25 (22-29) mmol/L Anion Gap 13.9 (5-19) BUN 13 (6-20) mg/dL Creatinine 0.9 (0.7-1.2) mg/dL GFR Calculation 106.5 (90-130) mL/min Glucose 89 (65-115) mg/dL Calculated Osmolal ity 262 L (285-295) mOsm/k g Lactate (0.5-2.2) mmol/L Calcium 8.7 (8.5-10.5) mg/dL Total Bilirubin 0.4 (0.15-1.2) mg/dL AST 99 H (0-40) U/L ALT 129 H (0-41) U/L Alkaline Phosphata se 111 (40-130) IU/L Troponin T Baselin e 10 (0-15) ng/L Troponin T 120 Min [place] (0-15) ng/L Delta Troponin T (0-10) ABS# Troponin T Hi Sens 6Hr (0-15) ng/L Troponin T Hi Sens 6Hr Delta (0-12) ng/L NT-Pro-B Natriuret Pep 1829 H (0-125) pg/mL Total Protein 8.2 (6.6-8.7) g/dL Albumin 3.3 L (3.5-5.2) g/dL Globulin 4.9 H (1.3-4.6) g/dL Lipase 26 (13-60) U/L Urine Color (Yellow) Urine Appearance (CLEAR) Urine pH (5-7) Ur Specific Gravit y (1.005-1.030) Urine Protein (Negative) Urine Glucose (UA) (Normal) Urine Ketones (Negative) Urine Blood (Negative) Urine Nitrate (Negative) Urine Bilirubin (Negative) Urine Urobilinogen (Negative) mg/dL Ur Leukocyte Katt ase (Negative) Urine Opiates Scre en (Negative) ng/mL Ur Barbiturates Sc reen (Negative) ng/mL Ur Phencyclidine S crn (Negative) ng/mL Ur Amphetamines Sc reen (Negative) ng/mL U Benzodiazepines Scrn (Negative) ng/mL Urine Cocaine Scre en (Negative) ng/mL U Marijuana (THC) Screen (Negative) ng/mL SARS-CoV-2 Ag (Rap id) (Negative) 06/18/20 06/18/20 06/18/20 Range/Units 18:59 19:48 19:48 WBC (4.0-10.0) 10^3/ uL RBC (4.1-5.3) 10^6/u L Hgb (11.7-16.6) g/dL Hct (42.0-52.0) % MCV (80-94) fL MCH (28.0-34.0) pg MCHC (30.0-36.0) g/dL RDW (12.1-15.1) % Plt Count (130-400) 10^3/c mm MPV (7.4-10.4) fL Neut % (Auto) % Lymph % (Auto) % [place] % (Auto) % Eos % (Auto) % Baso % (Auto) % Neut # (Auto) (1.8-7.7) 10^3/u L Lymph # (Auto) (0.8-4.8) 10^3/u L [place] # (Auto) (0.2-0.9) 10^3/u L Eos # (Auto) (0.0-0.8) 10^3/u L Baso # (Auto) (0.0-0.1) 10^3/u L Nucleated RBC % (a uto) % Nucleated RBCs # /100WBC Sodium (136-145) mmol/L Potassium (3.5-5.1) mmol/L Chloride (98-107) mmol/L Carbon Dioxide (22-29) mmol/L Anion Gap (5-19) BUN (6-20) mg/dL Creatinine (0.7-1.2) mg/dL GFR Calculation (90-130) mL/min Glucose (65-115) mg/dL Calculated Osmolal ity (285-295) mOsm/k g Lactate 1.5 (0.5-2.2) mmol/L Calcium (8.5-10.5) mg/dL Total Bilirubin (0.15-1.2) mg/dL AST (0-40) U/L ALT (0-41) U/L Alkaline Phosphata se (40-130) IU/L Troponin T Baselin e (0-15) ng/L Troponin T 120 Min [place] (0-15) ng/L Delta Troponin T (0-10) ABS# Troponin T Hi Sens 6Hr (0-15) ng/L Troponin T Hi Sens 6Hr Delta (0-12) ng/L NT-Pro-B Natriuret Pep (0-125) pg/mL Total Protein (6.6-8.7) g/dL Albumin (3.5-5.2) g/dL Globulin (1.3-4.6) g/dL Lipase (13-60) U/L Urine Color Yellow (Yellow) Urine Appearance Clear (CLEAR) Urine pH 8 H (5-7) Ur Specific Gravit y 1.010 (1.005-1.030) Urine Protein Neg (Negative) Urine Glucose (UA) 1+ (Normal) Urine Ketones Negative (Negative) Urine Blood Neg (Negative) Urine Nitrate Negative (Negative) Urine Bilirubin Neg (Negative) Urine Urobilinogen 1 H (Negative) mg/dL Ur Leukocyte Katt ase Negative (Negative) Urine Opiates Scre en Negative (Negative) ng/mL Ur Barbiturates Sc reen Negative (Negative) ng/mL Ur Phencyclidine S crn Negative (Negative) ng/mL Ur Amphetamines Sc reen Positive H (Negative) ng/mL U Benzodiazepines Scrn Negative (Negative) ng/mL Urine Cocaine Scre en Negative (Negative) ng/mL U Marijuana (THC) Screen Positive H (Negative) ng/mL SARS-CoV-2 Ag (Rap id) (Negative) 06/18/20 06/18/20 06/19/20 Range/Units 21:43 23:25 01:17 WBC (4.0-10.0) 10^3/ uL RBC (4.1-5.3) 10^6/u L Hgb (11.7-16.6) g/dL Hct (42.0-52.0) % MCV (80-94) fL MCH (28.0-34.0) pg MCHC (30.0-36.0) g/dL RDW (12.1-15.1) % Plt Count (130-400) 10^3/c mm MPV (7.4-10.4) fL Neut % (Auto) % Lymph % (Auto) % [place] % (Auto) % Eos % (Auto) % Baso % (Auto) % Neut # (Auto) (1.8-7.7) 10^3/u L Lymph # (Auto) (0.8-4.8) 10^3/u L Providence # (Auto) (0.2-0.9) 10^3/u L Eos # (Auto) (0.0-0.8) 10^3/u L Baso # (Auto) (0.0-0.1) 10^3/u L Nucleated RBC % (a uto) % Nucleated RBCs # /100WBC Sodium (136-145) mmol/L Potassium (3.5-5.1) mmol/L Chloride (98-107) mmol/L Carbon Dioxide (22-29) mmol/L Anion Gap (5-19) BUN (6-20) mg/dL Creatinine (0.7-1.2) mg/dL GFR Calculation (90-130) mL/min Glucose (65-115) mg/dL Calculated Osmolal ity (285-295) mOsm/k g Lactate (0.5-2.2) mmol/L Calcium (8.5-10.5) mg/dL Total Bilirubin (0.15-1.2) mg/dL AST (0-40) U/L ALT (0-41) U/L Alkaline Phosphata se (40-130) IU/L Troponin T Baselin e (0-15) ng/L Troponin T 120 Min [place] 8.68 (0-15) ng/L Delta Troponin T -1.32 L (0-10) ABS# Troponin T Hi Sens 6Hr 9.58 (0-15) ng/L Troponin T Hi Sens 6Hr Delta -0.42 L (0-12) ng/L NT-Pro-B Natriuret Pep (0-125) pg/mL Total Protein (6.6-8.7) g/dL Albumin (3.5-5.2) g/dL Globulin (1.3-4.6) g/dL Lipase (13-60) U/L Urine Color (Yellow) Urine Appearance (CLEAR) Urine pH (5-7) Ur Specific Gravit y (1.005-1.030) Urine Protein (Negative) Urine Glucose (UA) (Normal) Urine Ketones (Negative) Urine Blood (Negative) Urine Nitrate (Negative) Urine Bilirubin (Negative) Urine Urobilinogen (Negative) mg/dL Ur Leukocyte Katt ase (Negative) Urine Opiates Scre en (Negative) ng/mL Ur Barbiturates Sc reen (Negative) ng/mL Ur Phencyclidine S crn (Negative) ng/mL Ur Amphetamines Sc reen (Negative) ng/mL U Benzodiazepines Scrn (Negative) ng/mL Urine Cocaine Scre en (Negative) ng/mL U Marijuana (THC) Screen (Negative) ng/mL SARS-CoV-2 Ag (Rap id) Negative (Negative) Discharge Plan Discharge Patient Disposition: Xfer Short-Term Hosp Clinical Impression: Polysubstance abuse Acute infective endocarditis Qualifiers: Infective endocarditis organism: bacterial Qualified Code(s): I33.0 - Acute and subacute infective endocarditis Hepatitis C Qualifiers: Viral hepatitis chronicity: unspecified Hepatic coma status: without hepatic coma Qualified Code(s): B19.20 - Unspecified viral hepatitis C without hepatic coma Chest pain Qualifiers: Chest pain type: unspecified Qualified Code(s): R07.9 - Chest pain, unspecified Acute septic pulmonary embolism Qualifiers: Acute cor pulmonale presence: without acute cor pulmonale Qualified Code(s): I26.90 - Septic pulmonary embolism without acute cor pulmonale Condition: Stable Discharge Orders: Transfer Out of Facility (Order); Ordered 06/18/20 Ordered By: Gris García Sign Out Sign Out Data: Patient Sign Out occurred on 06/19/20 at 06:38. Patient's care was discussed, and care was transferred from to Jeremías Shah DO. Coding Level of Care Code ED Air Hose Coupler for Raymond Fwd Exam Comprehensive
[2020-06-18 22:09] LABS: Troponin 5 2HR 8.68 ng/L (0-15)
[2020-06-18 22:12] LABS: Troponin 5 2HR Delta -1.32 ABS# (0-10)
[2020-06-18] MEDS: fentaNYL 50 mcg/mL INJ 2mL IVP (23:17)
[2020-06-18 23:18] VITALS: BP 103/60; PULSE 245; RESP 23; O2SAT 97
[2020-06-18 23:44] LABS: SARS Covid-2 Antigen Negative (Negative)
--- NOTE | 2020-06-19 00:14 | ECG_ITS ---
[facility] Test Date: 2020-06-19 Pat Name: Adams Rankin Department: Room: Gender: Male Stockholder: : 2000 Requested By: Gris Ross I Order Number: [id number] Gen MD: Hernandez Whitaker M.D. Measurements Intervals [place] Rate: 116 P: 73 MI: 92 QRS: 88 QRSD: 90 T: 56 QT: 333 QTc: 464 Interpretive Statements SINUS TACHYCARDIA WITH SHORT MI INTERVAL LEFT ATRIAL ENLARGEMENT [-0.15mV P WAVE IN V1/V2] Compared to ECG 06/18/2020 20:48:47 No significant changes Electronically Signed On 06-19-2020 11:00:36 SCIENCE INTERN by Hernandez Whitaker M.D. [id number]
[2020-06-19 00:22] VITALS: BP 104/65; PULSE 117; RESP 29; O2SAT 97
[2020-06-19 01:34] VITALS: BP 111/53; PULSE 109; RESP 22; O2SAT 97
[2020-06-19] MEDS: LORazepam 2 mg/mL INJ 1 mL 1 MG IVP (01:34)
[2020-06-19 01:44] LABS: Troponin 5 6HR 9.58 ng/L (0-15)
[2020-06-19 01:46] LABS: Troponin 5 6HR Delta -0.42 ng/L (0-12)
[2020-06-19] MEDS: fentaNYL 50 mcg/mL INJ 2mL 100 MCG IVP ×3 (02:41→07:32)
[2020-06-19 02:43] VITALS: BP 116/70; PULSE 109; RESP 19; O2SAT 98
[2020-06-19 05:45] VITALS: BP 120/63; PULSE 117; RESP 19; O2SAT 97
[2020-06-19] MEDS: piperacillin-tazobactam 3.375 GM in sodium chloride 0.9% (plus) 50 ML IV (06:33)
[2020-06-19 06:52] VITALS: RESP 19
[2020-06-19] MEDS: vancomycin 1,250 MG/250 ML PIGGYBACK 200 MG IV (07:07)
[2020-06-19 07:32] VITALS: RESP 18; O2SAT 98
--- NOTE | 2020-06-19 07:50 | PC.NURSE ---
Vanomycin sent with EMS crew to finish infusing.
== END 2020-06-19 07:51 | disposition short-term general hospital (02) ==
PROVIDERS: Family Medicine; Emergency Provider Family Medicine
DX: I33.0 Acute and subacute infective endocarditis (principal); B19.20 Unspecified viral hepatitis C without hepatic coma; R07.9 Chest pain, unspecified; I26.90 Septic pulmonary embolism without acute cor pulmonale; F19.10 Other psychoactive substance abuse, uncomplicated; Z77.22 Contact with and (suspected) exposure to environmental tobacco smoke (acute) (chronic)
CPT/HCPCS: 12345; 36415; 71045; 71275; 80053; 80306; 81003; 83605; 83690; 83880; 84484; 85025; 87040; 87077; 87186; 87205; 87426; 93005; 96365; 96367; 96375; 96376; 99284; 99285; J2060; J2543; J3010; J3370; Q9967

== ENCOUNTER 2020-07-08 09:26 | Emergency (ER) | payer SELFPAY ==
[2020-07-08 09:31] VITALS: BP 129/78; PULSE 81; RESP 16; TEMP 36.6; O2SAT 99; BMI 23.1
--- NOTE | 2020-07-08 09:46 | XR_ITS ---
WS: [id number] Exam: XR chest 1V portable [id number] Date/Time of Exam: 07/08/2020 9:56 AM Reason For Exam: chest pain Comparison to June 18, 2020. Residual airspace infiltrate in the mid and lower right lung. There is been significant improvement s melonie prior study. The left lung is clear. The lungs are fully expanded. The heart is normal in size f or technique. Signs of median sternotomy and cardiac valve replacement. The mediastinum and bony thor ax are unremarkable. Monitoring leads superimpose the chest. XR/XR chest 1V portable [id number] IMPRESSION: 1. Residual infiltrates in the mid and lower right lung however there is been i mprovement since prior study.
--- NOTE | 2020-07-08 09:46 | ECG_ITS ---
[facility] Test Date: 2020-07-08 Pat Name: Adams Rankin Department: Room: Gender: Male Manager Bridge: : 2000 Requested By: Enoc Aly Order Number: [id number] Gen MD: Martinez Carlson M.D. Measurements Intervals [place] Rate: 83 P: 59 NM: 154 QRS: 39 QRSD: 95 T: 46 QT: 375 QTc: 442 Interpretive Statements SINUS RHYTHM NONSPECIFIC T-WAVE ABNORMALITY Compared to ECG 06/19/2020 00:14:22 T-wave abnormality now present Sinus tachycardia no longer present Short NM interval no longer present Atrial abnormality no longer present Electronically Signed On 07-08-2020 20:05:46 GEOLOGICAL TECHNICIAN by Martinez Carlson M.D. [id number] f
--- NOTE | 2020-07-08 10:01 | ED_ITS ---
HPI - Chest Pain General: Chief Complaint: Chest Pain Stated Complaint: CHEST PAIN/ SOB Time Seen by Provider: 07/08/20 09:33 History of Present Illness: HPI narrative: Patient is a 19-year-old male that presents with chest pain. Patient has significant history of infective endocarditis and had tricuspid valve replaced towards the end of 2019. He was subsequently seen last month for increasing pain and was noted to have worsening infection. He was transferred to [place] where his valve replacement surgeon is located. He was there for 3 weeks on IV antibiotics. He was discharged last week and has continued taking his linezolid and Augmentin. He states that he began having chest pain today. Patient does have a history of IV drug use. He has not taken anything other than the aspirin given him by EMS prior to arrival. He denies any fevers. He states the pain is over his left chest and radiates to his right chest. Associated symptoms: Reports nausea; Deny dyspnea, fever(s), palpitations, syncope or vomiting Review of Systems General: Reports: 10 or more systems reviewed and unremarkable except in HPI and below Const: Denies: fever(s) Eyes: Denies: blurry vision ENMT: Denies: nasal congestion Card: Reports: chest pain; Denies: palpitations, syncope or dyspnea on exertion Resp: Denies: dyspnea or productive cough GI: Reports: nausea; Denies: vomiting, diarrhea, constipation, change in stool character or melena : Denies: dysuria or hematuria Musc: Denies: neck pain or back pain Skin/Breast: Denies: rash or new lesions Neuro: Denies: headache(s) or dizziness Psych: Denies: anxiety [place]/Lymph: Denies: easy bleeding, petechiae or purpura PFSH ED PFSH: Medical History (Updated 07/08/20 @ 11:30 by Enoc Hoff DO) Polysubstance abuse Surgical History History of right knee surgery Family History Mother Substance abuse Social History (Updated 07/08/20 @ 09:37 by Eduin Baugh RN) Smoking and tobacco status: current every day smoker cigarettes Packs smoked per day: 1 Second hand smoke exposure: Yes Alcohol intake: former Physical Exam Const: COMMON NORMALS: no acute distress, patient oriented x3, alert and well nourished HENMT: COMMON NORMALS: normocephalic, atraumatic, EAC's normal, TM's normal bilaterally and Normal external nose present HEAD & SCALP: normocephalic and atraumatic FACE & SINUS: normal facial exam and face symmetric NOSE: Normal external nose present EXTERNAL AUDITORY CANAL: EAC's normal TYMPANIC MEMBRANE: TM's normal bilaterally MOUTH: Normal oral and palatal mucosa present and moist mucous membranes abnormal Eye: COMMON NORMALS: Equal, round and reactive pupils present PUPIL: Yes Equal, round and reactive pupils present Neck/C-Spine: GENERAL: Yes normal visual inspection Chest: COMMONS NORMALS: normal inspection of the chest Resp: COMMON NORMALS: normal respiratory effort, No retractions, No use of accessory muscles and clear to auscultation bilaterally AUSCULTATION: clear to auscultation bilaterally Cardio: COMMON NORMALS: regular rate, regular rhythm, S1 normal heart sound present, S2 normal heart sound present and No murmurs present (Cardio) RATE: regular rate RHYTHM: regular rhythm HEART SOUNDS: S1 normal heart sound present and S2 normal heart sound present GI: COMMON NORMALS: Soft to palpation and No hepatosplenomegaly present INSPECTION: Yes normal to inspection AUSCULTATION: Yes normoactive bowel sounds PALPATION: Yes Soft to palpation and Yes No hepatosplenomegaly present RECTAL EXAM: Yes deferred : COMMON NORMALS: Yes no CVA tenderness BLADDER/KIDNEY EXAM: Yes no CVA tenderness Back/Pelvis: COMMON NORMALS: no CVA tenderness Neuro: COMMON NORMALS: patient oriented x3 and moves all extremities SENSORIUM/ORIENTATION: Yes alert SPEECH: speech normal Psych: COMMON NORMALS: mental status grossly normal Skin: COMMON NORMALS: no rashes or lesions noted GENERAL SKIN EXAM: no rashes or lesions noted Course Vital Signs: Vital signs: Vital Signs Temperature 97.8 F 07/08/20 09:31 Pulse Rate 82 07/08/20 10:36 Respiratory Rate 19 H 07/08/20 10:36 Blood Pressure 115/70 07/08/20 10:36 Pulse Oximetry 97 07/08/20 10:36 MDM - Chest Pain MDM Narrative: Medical decision making narrative: Patient remained stable in ED. His lab works unremarkable with exception of extremely elevated D-dimer and BNP is also elevated compared to prior. EKG shows no acute changes. When the patient was taken to CT for a CTA of his chest he was requesting to leave AGAINST MEDICAL ADVICE. I had a discussion with the patient about the risks of doing so including worsening of his condition including but not limited to . He voiced understanding of these risks and signed out AGAINST MEDICAL ADVICE. Lab Data: Labs: Lab Results 07/08/20 07/08/20 07/08/20 Range/Units 09:52 09:52 09:52 WBC 9.0 (4.0-10.0) 10^3/ uL RBC 4.34 (4.1-5.3) 10^6/u L Hgb 10.3 L (11.7-16.6) g/dL Hct 34.8 L (42.0-52.0) % MCV 80.2 (80-94) fL MCH 23.7 L (28.0-34.0) pg MCHC 29.6 L (30.0-36.0) g/dL RDW 17.8 H (12.1-15.1) % Plt Count 320 (130-400) 10^3/c mm MPV 9.9 (7.4-10.4) fL Neut % (Auto) 59.5 % Lymph % (Auto) 31.0 % [place] % (Auto) 6.0 % Eos % (Auto) 1.6 % Baso % (Auto) 0.9 % Neut # (Auto) 5.38 (1.8-7.7) 10^3/u L Lymph # (Auto) 2.8 (0.8-4.8) 10^3/u L [place] # (Auto) 0.5 (0.2-0.9) 10^3/u L Eos # (Auto) 0.1 (0.0-0.8) 10^3/u L Baso # (Auto) 0.1 (0.0-0.1) 10^3/u L Nucleated RBC % (a uto) 0 % Nucleated RBCs # 0.0 /100WBC D-Dimer >= 20.00 H (0-0.59) ug/mIFE U Sodium 139 (136-145) mmol/L Potassium 4.3 (3.5-5.1) mmol/L Chloride 105 (98-107) mmol/L Carbon Dioxide 24 (22-29) mmol/L Anion Gap 14.3 (5-19) BUN 14 (6-20) mg/dL Creatinine 1.0 (0.7-1.2) mg/dL GFR Calculation 94.3 (90-130) mL/min Glucose 97 (65-115) mg/dL Calculated Osmolal ity 288 (285-295) mOsm/k g Calcium 9.2 (8.5-10.5) mg/dL Troponin T Baselin e (0-15) ng/L C-Reactive Protein 25.7 H (0.0-4.9) mg/L NT-Pro-B Natriuret Pep 2440 H (0-125) pg/mL 07/08/20 Range/Units 09:52 WBC (4.0-10.0) 10^3/ uL RBC (4.1-5.3) 10^6/u L Hgb (11.7-16.6) g/dL Hct (42.0-52.0) % MCV (80-94) fL MCH (28.0-34.0) pg MCHC (30.0-36.0) g/dL RDW (12.1-15.1) % Plt Count (130-400) 10^3/c mm MPV (7.4-10.4) fL Neut % (Auto) % Lymph % (Auto) % [place] % (Auto) % Eos % (Auto) % Baso % (Auto) % Neut # (Auto) (1.8-7.7) 10^3/u L Lymph # (Auto) (0.8-4.8) 10^3/u L [place] # (Auto) (0.2-0.9) 10^3/u L Eos # (Auto) (0.0-0.8) 10^3/u L Baso # (Auto) (0.0-0.1) 10^3/u L Nucleated RBC % (a uto) % Nucleated RBCs # /100WBC D-Dimer (0-0.59) ug/mIFE U Sodium (136-145) mmol/L Potassium (3.5-5.1) mmol/L Chloride (98-107) mmol/L Carbon Dioxide (22-29) mmol/L Anion Gap (5-19) BUN (6-20) mg/dL Creatinine (0.7-1.2) mg/dL GFR Calculation (90-130) mL/min Glucose (65-115) mg/dL Calculated Osmolal ity (285-295) mOsm/k g Calcium (8.5-10.5) mg/dL Troponin T Baselin e 7 (0-15) ng/L C-Reactive Protein (0.0-4.9) mg/L NT-Pro-B Natriuret Pep (0-125) pg/mL Discharge Plan Discharge Patient Disposition: Left Against Medical Advice Clinical Impression: Left against medical advice Chest pain Qualifiers: Chest pain type: unspecified Qualified Code(s): R07.9 - Chest pain, unspecified Condition: Good Prescriptions: No Action furosemide 20 mg tablet See Rx Instructions .ROUTE .COMPLEX RF: 0 metoprolol tartrate 25 mg tablet See Rx Instructions .ROUTE .COMPLEX RF: 0 buprenorphine-naloxone 8-2 mg film 1 film buccal TID RF: 0 Narcan 4 mg/actuation spray,non-aerosol See Rx Instructions .ROUTE .COMPLEX RF: 0 Coding Level of Care Code ED Honing Machine Try Out Setter for Raymond Villagomez
[2020-07-08 10:04] LABS: Basophils # 0.1 10^3/uL (0.0-0.1); Basophils % 0.9 %; Eosinophils # 0.1 10^3/uL (0.0-0.8); Eosinophils % 1.6 %; Hematocrit 34.8 % (42.0-52.0); Hemoglobin 10.3 g/dL (11.7-16.6); Lymphocytes # 2.8 10^3/uL (0.8-4.8); Mean Corpuscular HGB Conc 29.6 g/dL (30.0-36.0); Mean Corpuscular Hemoglobin 23.7 pg (28.0-34.0); Mean Corpuscular Volume 80.2 fL (80-94); Mean Platelet Volume 9.9 fL (7.4-10.4); Monocytes # 0.5 10^3/uL (0.2-0.9); Neutrophils # 5.38 10^3/uL (1.8-7.7); Neutrophils % 59.5 %; Nucleated Red Blood Cells % 0 %; Platelet Count 320 10^3/cmm (130-400); Red Blood Count 4.34 10^6/uL (4.1-5.3); Red Cell Distribution Width 17.8 % (12.1-15.1)
[2020-07-08 10:20] LABS: Troponin(5th) Baseline 7 ng/L (0-15)
[2020-07-08 10:27] LABS: Anion Gap 14.3 (5-19); Blood Urea Nitrogen 14 mg/dL (6-20); C Reactive Protein 25.7 mg/L (0.0-4.9); Calcium 9.2 mg/dL (8.5-10.5); Carbon Dioxide 24 mmol/L (22-29); Chloride 105 mmol/L (98-107); Glomerular Filtration Rate 94.3 mL/min (90-130); Glucose 97 mg/dL (65-115); NT Pro B Type Natriuretic Pept 2440 pg/mL (0-125); Osmolality Calculated 288 mOsm/kg (285-295); Potassium 4.3 mmol/L (3.5-5.1); Sodium 139 mmol/L (136-145)
[2020-07-08 10:28] LABS: D Dimer >= 20.00 ug/mIFEU (0-0.59)
[2020-07-08 10:36] VITALS: BP 115/70; PULSE 82; RESP 19; O2SAT 97
== END 2020-07-08 11:25 | disposition left against medical advice (07) ==
PROVIDERS: Emergency Provider Emergency Medicine
DX: R07.9 Chest pain, unspecified (principal); Z53.21 Procedure and treatment not carried out due to patient leaving prior to being seen by health care provider; F17.210 Nicotine dependence, cigarettes, uncomplicated
CPT/HCPCS: 71045; 80048; 83880; 84484; 85025; 85378; 86140; 93005; 99284